=== PATIENT | male | born 1965 | race Caucasian/White ===

== ENCOUNTER 2019-03-15 12:57 | Observation (INO) ==
[2019-03-15] MEDS ORDERED: KETOROLAC TROMETHAMINE 15 MG/ML VIAL IV STA (14:31)
[2019-03-15] MEDS ORDERED: SODIUM CHLORIDE 0.9% 1000ML 1,000 ML IV ONE (14:31)
[2019-03-15 15:55] LABS: Basophils # (auto) 0.03 K/uL (0-0.2); Basophils % (auto) 0.2 %; Eosinophils # (auto) 0.02 K/uL (0-0.5); Eosinophils % (auto) 0.1 %; Hematocrit (blood only) 40.1 % (42-52); Hemoglobin 13.8 g/dL (14.0-18.0); Immature Granulocytes # (auto) 0.04 K/uL (0.00-0.02); Immature Granulocytes % (auto) 0.2 %; Lymphocytes # (auto) 1.53 K/uL (1.2-3.4); Lymphocytes % (auto) 8.9 %; Mean Corpuscular Hemoglobin 30.7 pg (25-34); Mean Corpuscular Hgb Conc 34.4 g/dL (32-36); Mean Corpuscular Volume 89.3 fL (80-100); Mean Platelet Volume 9.7 fL (7.4-10.4); Monocytes # (auto) 2.26 K/uL (0.11-0.59); Monocytes % (auto) 13.1 %; Neutrophils # (auto) 13.32 K/uL (1.4-6.5); Neutrophils % (auto) 77.5 %; Platelet Count 266 K/uL (130-400); RDW Coefficient of Variation 13.6 % (11.5-14.5); RDW Standard Deviation 44.4 fL (36.4-46.3); Red Blood Count 4.49 M/uL (4.7-6.1)
[2019-03-15 16:20] LABS: BUN Creatinine Ratio 12.8 (10-20); Blood Urea Nitrogen 15 mg/dl (7-18); Calcium 9.4 mg/dl (8.5-10.1); Carbon Dioxide 23 mmol/L (21-32); Chloride 105 mmol/L (98-107); Est GFR (African American) 80.9; Est GFR (Non-African American) 69.8; Glucose 89 mg/dl (70-99); Potassium 3.8 mmol/L (3.5-5.1); Sodium 135 mmol/L (136-145)
--- NOTE | 2019-03-15 16:55 | CT Scan Report ---
CT abd pelvis wo con CT DOSE: 987.51 mGy.cm HISTORY: Pain L inguinal pain TECHNIQUE: Multiaxial CT images of the abdomen and pelvis were performed without contrast. A dose lo wering technique was utilized adhering to the principles of ALARA. COMPARISON STUDY: None. FINDINGS: The lung bases are clear. Fatty replacement of the liver. The spleen and pancreas are unrem arkable. Kidneys negative for hydronephrosis. The bowel pattern is considered nonobstructive. No evidence for abscess collection or obstruction. Th e bladder is midline. Inguinal regions are unremarkable. IMPRESSION: No acute process in the abdomen or pelvis. ACT 112: Negative or not required by law. The above report was generated using voice recognition software. It may contain grammatical, syntax or spelling errors. Electronically signed by: Marin Aponte M.D. 03/15/2019 4:54 PM
--- NOTE | 2019-03-15 17:04 | Ultrasound Report ---
US scrotum/testicle HISTORY: Pain L testicular pain COMPARISON: None. FINDINGS: Right testis: Maximum dimension 4.0 cm. Normal vascular flow. Small epididymal cysts measuring 8 and 6 mm respectively. Left testis: Maximum dimension 3.3 cm. Normal vascular flow. Small epididymal cyst. IMPRESSION: 1. Normal testes bilaterally. 2. Normal vascular flow is confirmed to both testis. 3. Small bilateral epididymal cysts. ACT 112: Negative or not required by law. The above report was generated using voice recognition software. It may contain grammatical, syntax or spelling errors. Electronically signed by: Marin Aponte M.D. 03/15/2019 5:03 PM
[2019-03-15 17:49] LABS: Appearance Urine Clear (Clear); Bacteria Urine Automated Negative (Negative); Blood Urine Negative (Negative); Color Urine Dark Yellow; Epithelial Cell Urine Auto 20-30 /lpf (0-5); Glucose Urine UA Negative (Negative); Leukocyte Esterase Urine Negative (Negative); Nitrite Urine Negative (Negative); Protein Urine 1+ (Negative); Specific Gravity Urine 1.034 (1.000-1.030); Urobilinogen Urine Negative (Negative)
[2019-03-15 17:52] LABS: Ketones Urine 3+ (Negative)
[2019-03-15 17:58] LABS: Bilirubin Urine Negative (Negative); Ictotest Urine Negative (Negative)
[2019-03-15] MEDS ORDERED: cefTRIAXone SODIUM 1,000 MG/50 ML BAG IV STA (17:58)
[2019-03-15] MEDS ORDERED: ACETAMINOPHEN 325 MG TAB PO PRN (21:15)
--- NOTE | 2019-03-15 21:21 | History & Physical Report ---
Date of Service March 15, 2019 Assessment & Plan (1) Cellulitis of scrotum: -Admit to [facility] -Patient presenting from home with increasing scrotal erythema and edema -Seen by PCP on 03/11 and placed on ciprofloxacin for suspected epididymitis -In the ED today, WBC 17K, mild tachycardia; afebrile, BP stable, normal lactic acid -Scrotal ultrasound showing small bilateral epididymal cysts; no signs of epididymitis or fluid collection on ultrasound; CT ABD/pelvis does not show any evidence of Oneil's -UA does not suggest infection -S/p ceftriaxone in the ED, will continue with -Urology consult, input appreciated (2) Dyslipidemia: -Continue statin (3) DVT prophylaxis: -SCDs, ambulate History of Present Illness Chief Complaint: Scrotal Pain, Swelling, Redness Primary Care Provider: Иван Anaya MD 53 year old male who presents to the ED with scrotal pain, swelling, and redness. Patient reports symptoms of been going on for the past couple of weeks. He was seen in PCPs office on 03/11 and started on ciprofloxacin for suspected epididymitis. Outpatient scrotal ultrasound was obtained showing multiple right spermatocele and 9 mm left spermatocele versus epididymal cyst. Patient has had continued symptoms. He reports no relief since starting the ciprofloxacin. Pain is located at the base of his scrotum. Initially patient was only having pain with sitting however now pain occurs with any activity. Patient denies any urinary symptoms of hematuria or dysuria. No penile discharge. No open areas on the scrotum. Denies rectal pain with bowel movements. One night he woke up feeling hot and diaphoretic however did not jasmin e his temperature. Denies chills or rigors. No chest pain or shortness of breath. Denies lightheadedness, dizziness, diaphoresis, syncopal events. No abdominal pain, nausea, vomiting, diarrhea. In the ED, labs show WBC 17K. Scrotal ultrasound was obtained showing small bilateral epididymal cyst. CT ABD/pelvis negative for acute findings. Patient was given IV ceftriaxone, IV Toradol, IVF. Allergies Allergy/AdvReac Type Severity Reaction Status Date / Time Penicillins AdvReac Rash Unverified 03/15/19 14:19 Home Medications Home Medications Medication Instructions Recorded Confirmed Type atorvastatin 20 mg PO DAILY 03/15/19 03/15/19 History ciprofloxacin HCl [Cipro] 500 mg PO Q12H 03/15/19 03/15/19 History Past Med/Surg History Medical History (Updated 03/16/19 @ 08:15 by Hollis Ernst MD) Dyslipidemia Perineal abscess Undescended testicle s/p repair as a child Surgical History Status post scrotal varicocelectomy Family History Mother Dyslipidemia Father Prostate cancer Social History Preferred Language: Kazakh Communication Ability: Effective 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 Beliefs That Will Affect Care: None Current Living Situation: Spouse Other Information That Helps Us Care for You: No Feels Safe at Home: Yes Safety Concerns: Feels Safe At This Time Smoking Status: Former smoker Tobacco Type: cigarettes ; Do You Dip or Chew Tobacco: No ; Second Hand Exposure: No ; Tobacco Cessation Education Requested by Patient: No Hx Alcohol Use: Yes Alcohol type: wine Alcohol Intake Frequency Comment: Weekends Hx Substance Use: No Review of Systems Review of Systems: ROS per HPI, all other systems reviewed and negative Physical Exam Constitutional: WD/WN, vitals as above Eyes: PERRL, conjunctivae normal, anicteric sclerae ENMT: external ear and nose normal, oropharynx normal Respiratory: normal respiratory effort, lungs clear to auscultation Cardiovascular: Rate/Rhythm: regular rhythm and + tachycardic Vessels: normal peripheral pulses Extremities: no edema Gastrointestinal (Abdomen): normal bowel sounds, soft, nontender, no hepatosplenomegaly Musculoskeletal: no cyanosis or clubbing, extremities motor strength 5/5 Skin: no rashes, warm and dry Neurologic: PERRL, EOMI, accommodation nl, no face palsy, no dysarthria Psychiatric: A+Ox3, euthymic affect Genitourinary: + external tenderness (tenderness to base of scrotum), + edematous scrotum and + erythematous scrotum no penile drainage noted Results & Data Vital Signs (Past 12 Hours) Vital Signs Temp Pulse Pulse Resp BP BP Pulse Ox 03/15/19 20:00 107 H 14 141/83 H 97 03/15/19 19:30 93 H 18 128/90 98 03/15/19 19:00 100 H 19 150/91 H 97 03/15/19 18:30 96 H 11 L 122/80 96 03/15/19 18:00 97 H 15 132/86 96 03/15/19 17:58 100 H 12 125/89 96 03/15/19 17:30 95 H 13 125/89 97 03/15/19 17:14 98 H 17 133/87 98 03/15/19 16:00 96 H 14 127/89 96 03/15/19 15:51 99 H 20 147/94 H 98 03/15/19 15:50 93 H 15 147/94 H 99 03/15/19 15:00 91 H 12 120/79 99 03/15/19 14:30 95 H 15 134/92 97 03/15/19 13:06 37.2 C 114 H 18 155/107 H 99 Laboratory Results Short CBC 03/15/19 Range/Units 15:34 WBC 17.20 H (4.8-10.8) K/uL Hgb 13.8 L (14.0-18.0) g/dL Hct 40.1 L (42-52) % Plt Count 266 (130-400) K/uL BMP 03/15/19 15:34 Sodium 135 L Potassium 3.8 Chloride 105 Carbon Dioxide 23 BUN 15 Creatinine 1.19 Glucose 89 Calcium 9.4 Urine 03/15/19 Range/Units 17:27 Urine Color Dark Yellow Urine Appearance Clear (Clear) Urine pH 5.0 (4.5-7.5) Ur Specific [place] 1.034 H (1.000-1.030) Urine Protein 1+ H (Negative) Urine Glucose (UA) Negative (Negative) Diagnostic Findings SCROTAL ULTRASOUND IMPRESSION: 1. Normal testes bilaterally. 2. Normal vascular flow is confirmed to both testis. 3. Small bilateral epididymal cysts. CT ABD/PELVIS IMPRESSION: No acute process in the abdomen or pelvis. Code Status & VTE Plan VTE Prophylaxis Plan VTE Prophylaxis will be ordered: Yes Supervising Physician Co-Signing Physician Notes Pt was seen and examined. Agreed with Lauren CHADWICK exam, assessment and plan. 53 yo male with PMH of Dyslipidemia came to the ER for scrotal pain, erythema and swelling. Pt said that scrotal pain has been going on for the last few days. He said that pain worsening when sitting. He was starting on cipro by PCP. Scrotal u/s done in the ER showed Normal testes bilaterally and normal vascular flow is confirmed to both testis; and small bilateral epididymal cysts. CT abd/pelvis showed no acute process in the abdomen or pelvis. UA negative and WBC elevated. Will start on Ceftriaxone. Continue pain control. Will consult urology for eval. Continue monitor closely. MD Andrew
--- NOTE | 2019-03-15 21:44 | Emergency Department Note ---
Entered by Eunice Ordonez acting as a scribe for History of Present Illness General Chief complaint: Testicular Pain Stated complaint: TESTICAL PAIN AND INFLAMMATION Time Seen by Provider: 03/15/19 14:06 History of Present Illness Provider complaint: testicular pain Onset (ago): week(s) 1 Location: genitals (testicle) Pain Consistency: + other (worsening) Maximum Pain Intensity: 9 Relieved By: not by medication (Cipro) Associated symptoms: + denies other symptoms (dysuria, hematuria, bowel difficulty), + headaches (pulsating) and + other (base of scrotum feels inflamed, prostatitis, multiple spermatocele); no fever/chills Treatments prior to arrival: NSAID (3 Advil this morning without pain relief) The patient is a 53 year old male who presents to the ED with complaints of worsening testicular pain that started 1 week ago. The patient states that the pain is located at the base of his scrotum. The patient states that as time progressed, his pain worsened and it started to feel as if this area is becoming inflamed. The patient states that he saw a doctor at [facility] a few days ago and they diagnosed him with prostatitis. The patient states that he also had an ultrasound which showed multiple spermatocele. The patient states that he was discharged on Cipro. The patient notes that his pain has not gotten any better with the medication. The patient states that he has also had a pulsating headache, but denies fever, dysuria, hematuria, and difficulty moving his bowels. The patient notes that he took 3 Advil this morning but states that it does not help. The patient notes that he cannot see a urologist until mid- April so he decided to come to the ED today. Home Medications Home Medications Medication Instructions Recorded Confirmed Type atorvastatin 20 mg PO DAILY 03/15/19 03/15/19 History ciprofloxacin HCl [Cipro] 500 mg PO Q12H 03/15/19 03/15/19 History Allergies Allergy/AdvReac Type Severity Reaction Status Date / Time Penicillins AdvReac Rash Unverified 03/15/19 14:19 Past Med/Surg History Medical History Dyslipidemia Undescended testicle s/p repair as a child Surgical History Status post scrotal varicocelectomy Family History Mother Dyslipidemia Father Prostate cancer Social History Preferred Language: Cypriot Communication Ability: Effective [employer]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 and A total of 10 systems reviewed and were otherwise negative Physical Exam Vital Signs Vital Signs - 24 hr 03/15/19 13:06 03/15/19 14:30 03/15/19 15:00 Temperature 37.2 C Temperature Source Oral Pulse Rate 114 H 95 H 91 H Pulse Rate [Left] Pulse Rate from SpO2 Sensor 96 H 92 H Pulse Rhythm [Left] Respiratory Rate 18 15 12 Respiratory Effort / Characteristics Non-Labored Respiratory Depth Normal Respiratory Pattern Blood Pressure 155/107 H 134/92 120/79 Blood Pressure [Right Arm] Blood Pressure Mean 123 98 97 Blood Pressure Mean [Right Arm] Pulse Oximetry 99 97 99 Oxygen Delivery Method Room Air Sepsis Recent Fever Within 48 Hours No Sepsis New/Unexplained Change in Mental Status No Sepsis Action Taken by Nursing No Action Required 03/15/19 15:50 03/15/19 15:51 03/15/19 16:00 Temperature Temperature Source Pulse Rate 93 H 96 H Pulse Rate [Left] 99 H Pulse Rate from SpO2 Sensor 93 H 96 H Pulse Rhythm [Left] Regular Respiratory Rate 15 20 14 Respiratory Effort / Characteristics Non-Labored Respiratory Depth Normal Respiratory Pattern Regular Blood Pressure 147/94 H 127/89 Blood Pressure [Right Arm] 147/94 H Blood Pressure Mean 119 103 Blood Pressure Mean [Right Arm] 111 Pulse Oximetry 99 98 96 Oxygen Delivery Method Room Air Sepsis Recent Fever Within 48 Hours Sepsis New/Unexplained Change in Mental Status Sepsis Action Taken by Nursing 03/15/19 17:14 03/15/19 17:30 03/15/19 17:58 Temperature Temperature Source Pulse Rate 98 H 95 H 100 H Pulse Rate [Left] Pulse Rate from SpO2 Sensor 97 H 95 H 99 H Pulse Rhythm [Left] Respiratory Rate 17 13 12 Respiratory Effort / Characteristics Respiratory Depth Respiratory Pattern Blood Pressure 133/87 125/89 125/89 Blood Pressure [Right Arm] Blood Pressure Mean 95 95 95 Blood Pressure Mean [Right Arm] Pulse Oximetry 98 97 96 Oxygen Delivery Method Sepsis Recent Fever Within 48 Hours Sepsis New/Unexplained Change in Mental Status Sepsis Action Taken by Nursing 03/15/19 18:00 03/15/19 18:30 03/15/19 19:00 Temperature Temperature Source Pulse Rate 97 H 96 H 100 H Pulse Rate [Left] Pulse Rate from SpO2 Sensor 98 H 96 H 99 H Pulse Rhythm [Left] Respiratory Rate 15 11 L 19 Respiratory Effort / Characteristics Respiratory Depth Respiratory Pattern Blood Pressure 132/86 122/80 150/91 H Blood Pressure [Right Arm] Blood Pressure Mean 98 91 107 Blood Pressure Mean [Right Arm] Pulse Oximetry 96 96 97 Oxygen Delivery Method Sepsis Recent Fever Within 48 Hours Sepsis New/Unexplained Change in Mental Status Sepsis Action Taken by Nursing 03/15/19 19:30 03/15/19 20:00 Temperature Temperature Source Pulse Rate 93 H 107 H Pulse Rate [Left] Pulse Rate from SpO2 Sensor 95 H 108 H Pulse Rhythm [Left] Respiratory Rate 18 14 Respiratory Effort / Characteristics Respiratory Depth Respiratory Pattern Blood Pressure 128/90 141/83 H Blood Pressure [Right Arm] Blood Pressure Mean 97 93 Blood Pressure Mean [Right Arm] Pulse Oximetry 98 97 Oxygen Delivery Method Sepsis Recent Fever Within 48 Hours Sepsis New/Unexplained Change in Mental Status Sepsis Action Taken by Nursing GENERAL: He is oriented to person, place, and time. He appears well-developed and well-nourished. He does not appear distressed. HENT: Exam performed. - Head: Normocephalic and atraumatic. - Right Ear: External ear normal. No mastoid tenderness. - Left Ear: External ear normal. No mastoid tenderness. - Mouth/Throat: The oropharynx is clear and moist. No trismus in the jaw. No dental abscesses or uvula swelling. No oropharyngeal exudate or tonsillar abscesses. EYES: Conjunctivae and EOM are normal. Pupils are equal, round, and reactive to light. Right eye exhibits no discharge. Left eye exhibits no discharge. No scleral icterus. NECK: Normal range of motion. Neck supple. No JVD present. No spinous process tenderness present. No carotid bruit present. No rigidity. No tracheal deviation and normal range of motion present. No Brudzinski's sign and no Kernig's sign noted. CV: Normal rate, regular rhythm, normal heart sounds and intact distal pulses. There is no peripheral edema. Palpable radial pulses bue. PULM/CHEST: Effort normal and breath sounds normal. No respiratory distress. No stridor. He has no wheezes. He has no rales. - Chest Wall: He exhibits no tenderness. ABD: No CVA tenderness. The abdomen is soft. Bowel sounds are normal. He has no distension. No mass is present. There is no tenderness. There is no rebound, no guarding, no Barron's sign and no tenderness at McBurney's point. Rovsig negative. MUSC/SKEL: Normal range of motion. There is no peripheral edema, tenderness or deformity. : Pain to palpation of left testicle and left inguinal area. Uncircumcised, no urethral discharge or bleeding. Overlying erythema, warmth and swelling of scrotum. Pain to palpation of epididymis. LYMPH: No cervical adenopathy. NEURO: He is alert and oriented to person, place, and time. He has normal strength. No cranial nerve deficit or sensory deficit. Coordination and gait normal. GCS eye subscore is 4. GCS verbal subscore is 5. GCS motor subscore is 6. Cerebellar tests wnl. SKIN: Skin is warm and dry. He is not diaphoretic. PSYCH: He has a normal mood and affect. Behavior is normal. Judgment and thought content normal. Course Course 1422: Past medical records reviewed. The patient was evaluated in room C09. A complete history and physical exam was performed. 1427: occupational therapist rehab manager received outpatient records. Ultrasound showed normal testes and no evidence of intratesticular mass or torsion. There are multiple right s ided spermatocele and a 9 mm left spermatocele versus epididymal cyst. There is a region superior to the right and left testes representing postsurgical change related to previous right inguinal surgery with hernia not excluded. 1723: Labs show leukocytosis of 17.2. Ultrasound shows bilateral epididymal cysts, good blood flow. CT of the abdomen pelvis negative. It is thought that the patient's leukocytosis, tachycardia, are due to overlying cellulitis over the patient scrotum. There is no evidence of Oneil's gangrene. I discussed the patient's case with Dr. Carmona Urologmargo. He states that the patient's prostatitis may take some time to improve but if the patient is admitted to the hospital, he is in agreement to be on consult. 1912: I discussed the patient's case with Dr. [facility]. He will evaluate the patient for further management. Consultations Consultation #1: I discussed the patient's case with Dr. Carmona Urologmargo. He states that the patient's prostatitis may take some time to improve but if the patient is admitted to the hospital, he is in agreeament to be on consult. Time: 17:23 Consultation #2: I discussed the patient's case with Dr. Paige Conway. He will evaluate the patient for further management. Time: 19:12 Administered Medications Discontinued Medications Sodium Chloride (Nss 1000ml) 1,000 mls @ 999 mls/hr IV .Q1H1M ONE Stop: 03/15/19 15:31 Last Infusion: 03/15/19 16:45 Dose: 0 mls/hr Documented by: [id number] Admin: 03/15/19 15:47 Dose: 999 mls/hr Documented by: [id number] Ceftriaxone Sodium (Rocephin) 1,000 mg in 50 mls @ 100 mls/hr IV NOW STA Stop: 03/15/19 18:27 Last Infusion: 03/15/19 18:58 Dose: 0 mls/hr Documented by: [id number] Admin: 03/15/19 18:19 Dose: 100 mls/hr Documented by: [id number] Ketorolac Tromethamine (Toradol) 15 mg IV NOW STA Stop: 03/15/19 14:32 Last Admin: 03/15/19 15:47 Dose: 15 mg Documented by: [id number] Medical Decision Making Medical Records Attestation: I reviewed the patient's medical records. Home Medications Current Medication List: was personally reviewed by me Laboratory Data Attestation: I reviewed the patient's lab results. Result diagrams: 03/15/19 15:34 03/15/19 15:34 Lab Results 03/15/19 03/15/19 03/15/19 Range/Units 15:34 15:34 17:25 WBC 17.20 H (4.8-10.8) K/uL RBC 4.49 L (4.7-6.1) M/uL Hgb 13.8 L (14.0-18.0) g/dL Hct 40.1 L (42-52) % MCV 89.3 (80-100) fL MCH 30.7 (25-34) pg MCHC 34.4 (32-36) g/dL RDW Std Deviation 44.4 (36.4-46.3) fL RDW Coeff of Everardo 13.6 (11.5-14.5) % Plt Count 266 (130-400) K/uL MPV 9.7 (7.4-10.4) fL Immature Gran % (Auto) 0.2 % Neut % (Auto) 77.5 % Lymph % (Auto) 8.9 % [place] % (Auto) 13.1 % Eos % (Auto) 0.1 % Baso % (Auto) 0.2 % Immature Gran # (Auto) 0.04 H (0.00-0.02) K/uL Neut # (Auto) 13.32 H (1.4-6.5) K/uL Lymph # (Auto) 1.53 (1.2-3.4) K/uL [place] # (Auto) 2.26 H (0.11-0.59) K/uL Eos # (Auto) 0.02 (0-0.5) K/uL Baso # (Auto) 0.03 (0-0.2) K/uL Sodium 135 L (136-145) mmol/L Potassium 3.8 (3.5-5.1) mmol/L Chloride 105 (98-107) mmol/L Carbon Dioxide 23 (21-32) mmol/L Anion Gap 7.0 (3-11) BUN 15 (7-18) mg/dl Creatinine 1.19 (0.6-1.4) mg/dl Est Cr Clr Drug Dosing Not Reportable Est GFR ( Amer) 80.9 Est GFR (Non-Af Amer) 69.8 BUN/Creatinine Ratio 12.8 (10-20) Glucose 89 (70-99) mg/dl POC Lactic Acid Daniele (0.90-1.70) mmol/L Lactate 1.8 (0.4-2.0) mmol/L Calcium 9.4 (8.5-10.1) mg/dl Urine Color Urine Appearance (Clear) Urine pH (4.5-7.5) Ur Specific Leon (1.000-1.030) Urine Protein (Negative) Urine Glucose (UA) (Negative) Urine Ketones (Negative) Urine Blood (Negative) Urine Nitrite (Negative) Urine Bilirubin (Negative) Urine Urobilinogen (Negative) Ur Leukocyte Esterase (Negative) Urine WBC (Auto) (0-5) /hpf Urine RBC (Auto) (0-4) /hpf U Hyaline Cast (Auto) (0-5) /lpf U Epithel Cells (Auto) (0-5) /lpf Urine Bacteria (Auto) (Negative) 03/15/19 03/15/19 Range/Units 17:27 17:32 WBC (4.8-10.8) K/uL RBC (4.7-6.1) M/uL Hgb (14.0-18.0) g/dL Hct (42-52) % MCV (80-100) fL MCH (25-34) pg MCHC (32-36) g/dL RDW Std Deviation (36.4-46.3) fL RDW Coeff of Everardo (11.5-14.5) % Plt Count (130-400) K/uL MPV (7.4-10.4) fL Immature Gran % (Auto) % Neut % (Auto) % Lymph % (Auto) % [place] % (Auto) % Eos % (Auto) % Baso % (Auto) % Immature Gran # (Auto) (0.00-0.02) K/uL Neut # (Auto) (1.4-6.5) K/uL Lymph # (Auto) (1.2-3.4) K/uL [place] # (Auto) (0.11-0.59) K/uL Eos # (Auto) (0-0.5) K/uL Baso # (Auto) (0-0.2) K/uL Sodium (136-145) mmol/L Potassium (3.5-5.1) mmol/L Chloride (98-107) mmol/L Carbon Dioxide (21-32) mmol/L Anion Gap (3-11) BUN (7-18) mg/dl Creatinine (0.6-1.4) mg/dl Est Cr Clr Drug Dosing Est GFR ( Amer) Est GFR (Non-Af Amer) BUN/Creatinine Ratio (10-20) Glucose (70-99) mg/dl POC Lactic Acid Daniele 1.83 H (0.90-1.70) mmol/L Lactate (0.4-2.0) mmol/L Calcium (8.5-10.1) mg/dl Urine Color Dark Yellow Urine Appearance Clear (Clear) Urine pH 5.0 (4.5-7.5) Ur Specific Leon 1.034 H (1.000-1.030) Urine Protein 1+ H (Negative) Urine Glucose (UA) Negative (Negative) Urine Ketones 3+ H (Negative) Urine Blood Negative (Negative) Urine Nitrite Negative (Negative) Urine Bilirubin Negative (Negative) Urine Urobilinogen Negative (Negative) Ur Leukocyte Esterase Negative (Negative) Urine WBC (Auto) 1-5 (0-5) /hpf Urine RBC (Auto) 5-10 H (0-4) /hpf U Hyaline Cast (Auto) 5-10 H (0-5) /lpf U Epithel Cells (Auto) 20-30 H (0-5) /lpf Urine Bacteria (Auto) Negative (Negative) Imaging Data Radiologist's Impression: Radiology results as stated below per my review and the radiologist's interpretation: CT abd pelvis wo con CT DOSE: 987.51 mGy.cm HISTORY: Pain L inguinal pain TECHNIQUE: Multiaxial CT images of the abdomen and pelvis were performed without contrast. A dose lowering technique was utilized adhering to the principles of ALARA. COMPARISON STUDY: None. FINDINGS: The lung bases are clear. Fatty replacement of the liver. The spleen and pancreas are unremarkable. Kidneys negative for hydronephrosis. The bowel pattern is considered nonobstructive. No evidence for abscess collection or obstruction. The bladder is midline. Inguinal regions are unremarkable. IMPRESSION: No acute process in the abdomen or pelvis. ACT 112: Negative or not required by law. The above report was generated using voice recognition software. It may contain grammatical, syntax or spelling errors. Electronically signed by: Marin Aponte M.D. 03/15/2019 4:54 PM US scrotum/testicle HISTORY: Pain L testicular pain COMPARISON: None. FINDINGS: Right testis: Maximum dimension 4.0 cm. Normal vascular flow. Small epididymal cysts measuring 8 and 6 mm respectively. Left testis: Maximum dimension 3.3 cm. Normal vascular flow. Small epididymal cyst. IMPRESSION: 1. Normal testes bilaterally. 2. Normal vascular flow is confirmed to both testis. 3. Small bilateral epididymal cysts. ACT 112: Negative or not required by law. The above report was generated using voice recognition software. It may contain grammatical, syntax or spelling errors. Electronically signed by: Marin Aponte M.D. 03/15/2019 5:03 PM Blood Pressure Blood Pressure Findings: Elevated blood pressure Blood Pressure Disposition: further management by hospitalist [facility] Narrative 1422: Past medical records reviewed. The patient was evaluated in room C09. A complete history and physical exam was performed. 1427: occupational therapist rehab manager received outpatient records. Ultrasound showed normal testes and no evidence of intratesticular mass or torsion. There are multiple right sided spermatocele and a 9 mm left spermatocele versus epididymal cyst. There is a region superior to the right and left testes representing postsurgical change related to previous right inguinal surgery with hernia not excluded. 1723: Labs show leukocytosis of 17.2. Ultrasound shows bilateral epididymal cysts, good blood flow. CT of the abdomen pelvis negative. It is thought that the patient's leukocytosis, tachycardia, are due to overlying cellulitis over the patient scrotum. There is no evidence of Oneil's gangrene. I discussed the patient's case with Dr. Ernst- Urology. He states that the patient's pr ostatitis may take some time to improve but if the patient is admitted to the hospital, he is in agreement to be on consult. 1912: I discussed the patient's case with Dr. Paige Chaney Hospitalist. He will evaluate the patient for further management. Impression & Plan Cellulitis of scrotum Discharge Plan Visit Data *Final* Discharge Date/Time: 03/15/19 21:05 Chief Complaint: Testicular Pain Stated Complaint: TESTICAL PAIN AND INFLAMMATION ED Provider: Jamar Lima Discharge Problem: Cellulitis of scrotum Patient Disposition: Admitted As Inpatient Discharge Instructions Interventions: ED Discharge Assessment Last Done: 03/15/19 21:05 The scribe's documentation has been prepared under my direction and personally reviewed by me in its entirety. I confirm that the note above accurately r eflects all work, treatment, procedures, and medical decision making performed by me.
[2019-03-15] MEDS: SODIUM CHLORIDE 0.9% 1000ML 1,000 ML IV SCH (21:57)
[2019-03-15] MEDS: KETOROLAC TROMETHAMINE 15 MG/ML VIAL IV PRN (21:58)
[2019-03-16 05:49] LABS: Hematocrit (blood only) 37.8 % (42-52); Hemoglobin 12.7 g/dL (14.0-18.0); Mean Corpuscular Hgb Conc 33.6 g/dL (32-36); Mean Corpuscular Volume 89.2 fL (80-100); Mean Platelet Volume 9.4 fL (7.4-10.4); Platelet Count 270 K/uL (130-400); RDW Coefficient of Variation 13.6 % (11.5-14.5); RDW Standard Deviation 44.6 fL (36.4-46.3); Red Blood Count 4.24 M/uL (4.7-6.1); White Blood Count 13.77 K/uL (4.8-10.8)
[2019-03-16 06:12] LABS: BUN Creatinine Ratio 14.8 (10-20); Calcium 8.6 mg/dl (8.5-10.1); Creatinine Clr Calc Pharmacy 97.3 ml/min; Est GFR (African American) 87.1; Est GFR (Non-African American) 75.1; Potassium 3.4 mmol/L (3.5-5.1)
[2019-03-16] MEDS ORDERED: LIDOCAINE HCL 1% 20 ML VIAL ONE (08:00)
[2019-03-16] MEDS ORDERED: LIDOCAINE HCL 1% 20 ML VIAL INJ ONE (08:06)
--- NOTE | 2019-03-16 08:20 | Urology Consultation ---
Date of Consultation March 16, 2019 Assessment & Plan (1) Perineal abscess: A/P 53 yo male with perineal abscess. Findings reviewed with patient, offered bedside I&D. Accepts, consent obtained. See above, wound packed. Local wound care reviewed, consider observation until tomorrow, packing change tonight by nursing, I will perform packing change in AM. Will arrange for OP f/u in 1-2 weeks to check on healing, worrisome signs and symptoms reviewed. Thank you for allowing us to participate in this patient's acute care. Please contact our service with any questions or concerns. History of Present Illness Reason for Consultation: Perineal abscess Attending Physician: Sandi Marcus, History of Present Illness 53 yo male admitted due to worsening perineal pain and swelling after being started on antibiotics for question of "prostatitis" by his PMD. He reports he is unimproved since, denies fevers. He notes worsening swelling in the perineal area. Scrotal US was done and was unremarkable with normal testes, apparently perineum not imaged. ER and hospitalist notes reviewed. Patient notes his pain is unimproved. He notes distant evaluation in the context of a L varicocoelectomy in [facility] and childhood R orchidopexy. He notes mild baseline LUTS with nocturia x 0-2, mild postvoid dribbling, no retention, hesitancy or intermittency, adequate stream and no bother. He denies prior UTI, DM or stricture disease. consultation is sought to assist with his care. He reports a normal PSA at the age of ~ 51. Allergies Allergy/AdvReac Type Severity Reaction Status Date / Time Penicillins AdvReac Rash Unverified 03/15/19 14:19 Home Medications Home Medications Medication Instructions Recorded Confirmed Type atorvastatin 20 mg PO DAILY 03/15/19 03/15/19 History ciprofloxacin HCl [Cipro] 500 mg PO Q12H 03/15/19 03/15/19 History Patient History Medical History (Updated 03/16/19 @ 08:15 by Hollis Ernst MD) Dyslipidemia Perineal abscess Undescended testicle s/p repair as a child Surgical History Status post scrotal varicocelectomy Family History Mother Dyslipidemia Father Prostate cancer Social History Preferred Language: Libyan Communication Ability: Effective Soil Sampler Required: No Beliefs That Will Affect Care: None Current Living Situation: Spouse Other Information That Helps Us Care for You: No Feels Safe at Home: Yes Safety Concerns: Feels Safe At This Time Smoking Status: Former smoker Tobacco Type: cigarettes ; Do You Dip or Chew Tobacco: No ; Second Hand Exposure: No ; Tobacco Cessation Education Requested by Patient: No Hx Alcohol Use: Yes Alcohol type: wine Alcohol Intake Frequency Comment: Weekends Hx Substance Use: No Review of Systems Constitutional: no fever and no chills Eyes: no diplopia Ear, Nose, Mouth, Throat: no ear trauma Respiratory: no hemoptysis Cardiovascular: no chest pain Gastrointestinal: no abdominal pain, no nausea and no vomiting Genitourinary: + nocturia and + genital pain; no dysuria Musculoskeletal: no back pain Integumentary: no acne and no boil Neurologic: no paralysis Psychiatric: no hopelessness Hematologic / Lymphatic: no easy bleeding and no lymphadenopathy Allergy / Immunological: no tongue swelling Physical Exam Constitutional: well developed and well nourished; no acute distress Eyes: eyes not dysmorphic ENMT: Ears: no external ear abnormality Neck: trachea midline; no anterior neck swelling Respiratory: no respiratory distress and does not use accessory muscles Cardiovascular: Vessels: radial pulses present Gastrointestinal (Abdomen): Inspection/Auscultation: abdomen not distended Percussion/Palpation: abdomen soft; abdomen nontender Musculoskeletal: Head/Neck/Chest: normocephalic and neck supple Skin: normal turgor Neurologic: awake; not obtunded Psychiatric: Orientation: oriented x 3 Genitourinary: Uncirc phallus, normal meatus, scrotum wnl, testes desc bilaterally, no masses or inflammation, large loculated perineal inflammation with 2 apparent areas of connection in midline and fluctuance. Lymphatic: no lymphadenopathy Results & Data Vital Signs (Past 12 Hours) Vital Signs Temp Pulse Pulse Resp BP BP Pulse Ox 03/16/19 07:43 36.6 C 110 H 16 124/78 93 03/15/19 22:46 37.5 C 98 H 16 123/80 95 03/15/19 21:13 37.5 C 105 H 20 157/93 H 96 03/15/19 21:00 103 H 14 129/81 97 03/15/19 20:30 108 H 12 142/88 H 96 Laboratory Results Laboratory Results - last 48 hr 03/15/19 03/15/19 03/15/19 15:34 15:34 17:25 WBC 17.20 H RBC 4.49 L Hgb 13.8 L Hct 40.1 L MCV 89.3 MCH 30.7 MCHC 34.4 RDW Std Deviation 44.4 RDW Coeff of [place] 13.6 Plt Count 266 MPV 9.7 Immature Gran % (Auto) 0.2 Neut % (Auto) 77.5 Lymph % (Auto) 8.9 [place] % (Auto) 13.1 Eos % (Auto) 0.1 Baso % (Auto) 0.2 Immature Gran # (Auto) 0.04 H Neut # (Auto) 13.32 H Lymph # (Auto) 1.53 [place] # (Auto) 2.26 H Eos # (Auto) 0.02 Baso # (Auto) 0.03 Sodium 135 L Potassium 3.8 Chloride 105 Carbon Dioxide 23 Anion Gap 7.0 BUN 15 Creatinine 1.19 Est Cr Clr Drug Dosing Not Reportable Est GFR ( Amer) 80.9 Est GFR (Non-Af Amer) 69.8 BUN/Creatinine Ratio 12.8 Glucose 89 POC Lactic Acid Daniele Lactate 1.8 Calcium 9.4 Urine Color Urine Appearance Urine pH Ur Specific [place] Urine Protein Urine Glucose (UA) Urine Ketones Urine Blood Urine Nitrite Urine Bilirubin Urine Urobilinogen Ur Leukocyte Esterase Urine WBC (Auto) Urine RBC (Auto) U Hyaline Cast (Auto) U Epithel Cells (Auto) Urine Bacteria (Auto) 03/15/19 03/15/19 03/16/19 17:27 17:32 05:34 WBC 13.77 H RBC 4.24 L Hgb 12.7 L Hct 37.8 L MCV 89.2 MCH 30.0 MCHC 33.6 RDW Std Deviation 44.6 RDW Coeff of [place] 13.6 Plt Count 270 MPV 9.4 Immature Gran % (Auto) Neut % (Auto) Lymph % (Auto) [place] % (Auto) Eos % (Auto) Baso % (Auto) Immature Gran # (Auto) Neut # (Auto) Lymph # (Auto) [place] # (Auto) Eos # (Auto) Baso # (Auto) Sodium Potassium Chloride Carbon Dioxide Anion Gap BUN Creatinine Est Cr Clr Drug Dosing Est GFR ( Amer) Est GFR (Non-Af Amer) BUN/Creatinine Ratio Glucose POC Lactic Acid Daniele 1.83 H Lactate Calcium Urine Color Dark Yellow Urine Appearance Clear Urine pH 5.0 Ur Specific [place] 1.034 H Urine Protein 1+ H Urine Glucose (UA) Negative Urine Ketones 3+ H Urine Blood Negative Urine Nitrite Negative Urine Bilirubin Negative Urine Urobilinogen Negative Ur Leukocyte Esterase Negative Urine WBC (Auto) 1-5 Urine RBC (Auto) 5-10 H U Hyaline Cast (Auto) 5-10 H U Epithel Cells (Auto) 20-30 H Urine Bacteria (Auto) Negative 03/16/19 05:34 WBC RBC Hgb Hct MCV MCH MCHC RDW Std Deviation RDW Coeff of Everardo Plt Count MPV Immature Gran % (Auto) Neut % (Auto) Lymph % (Auto) [place] % (Auto) Eos % (Auto) Baso % (Auto) Immature Gran # (Auto) Neut # (Auto) Lymph # (Auto) [place] # (Auto) Eos # (Auto) Baso # (Auto) Sodium 137 Potassium 3.4 L Chloride 108 H Carbon Dioxide 23 Anion Gap 6.0 BUN 17 Creatinine 1.12 Est Cr Clr Drug Dosing 97.3 Est GFR ( Amer) 87.1 Est GFR (Non-Af Amer) 75.1 BUN/Creatinine Ratio 14.8 Glucose 117 H POC Lactic Acid Daniele Lactate Calcium 8.6 Urine Color Urine Appearance Urine pH Ur Specific [place] Urine Protein Urine Glucose (UA) Urine Ketones Urine Blood Urine Nitrite Urine Bilirubin Urine Urobilinogen Ur Leukocyte Esterase Urine WBC (Auto) Urine RBC (Auto) U Hyaline Cast (Auto) U Epithel Cells (Auto) Urine Bacteria (Auto) PG Care Time/CCT Total # of Minutes Spent Total Time Spent with Patient: Total time spent is greater than 50% in coordination of care (as documented) at patient's floor/unit and/or counseling patient: Procedure: Patient prepped with betadine after identification of appropriate consent in the chart. Field block performed with Lidocaine 1% and vertical midline incision made. Two deep collections, ~ 2-3 cm in size with scant purulent fluid noted. These are probed with minimal loculations. Incision made to connect both. 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 Cavity packed with 1/4 inch gauze then covered. Procedure tolerated well.
[2019-03-16] MEDS ORDERED: OXYCODONE/ACETAMINOPHEN 5mg/325mg TAB PO PRN (08:50)
[2019-03-16] MEDS ORDERED: ATORVASTATIN 20 MG TAB PO SCH (09:00)
[2019-03-16] MEDS: SODIUM CHLORIDE 0.9% 1000ML 1,000 ML IV SCH (10:25)
[2019-03-16] MEDS: OXYCODONE/ACETAMINOPHEN 5mg/325mg TAB PO PRN ×2 (15:10→19:37)
--- NOTE | 2019-03-16 17:03 | Hospitalist Progress Note ---
Date of Service March 16, 2019 Assessment & Plan (1) Perineal abscess: Bedside I&D performed by Dr. Ernst. Cont ceftriaxone. Afebrile and continue with pain control efforts. (2) Cellulitis of scrotum: cont ceftriaxone. (3) Dyslipidemia: declines home statin that had been restarted on admission. (4) DVT prophylaxis: -SCDs, ambulate Full Code Dispo-to home when wound improved and medically stable. Sandi Marcus DO [facility] Hospitalist Physical Exam Physical Exam: CONSTITUTIONAL: WNWD, vitals as above, generally well- appearing EYES: normal conjunctivae, no scleral icterus ENT: MMM RESPIRATORY: clear to auscultation bilaterally, no crackles, rales or wheezes, normal respiratory effort CARDIOVASCULAR: regular rate and rhythm, S1 and 2 heard without murmurs, gallops or rubs, no JVD, no peripheral edema GASTROINTESTINAL: soft, nontender, nondistended : perineal wound with expected scrotal erythema, and resolution of previous erythema. Wound was packed and covered with gauze. Min drainage present. Limited perineal view but erythema of scrotum and perineum is present around the wound. Testes enlarged and symmetric, normal phallus. MUSCULOSKELETAL: strength 5/5 throughout, head is normocephalic and atraumatic SKIN: warm and dry, wound as above. NEUROLOGIC: CN 2-12 grossly intact, no sensory deficit, normal cognition, normal speech, no tremor, no gross focal deficits. PSYCHIATRIC: alert cooperative and oriented to person, place and time. Results & Data Vital Signs (Past 12 Hours) Vital Signs Temp Pulse Resp BP Pulse Ox 03/16/19 15:05 37.3 C 96 H 18 136/82 96 03/16/19 11:31 37.6 C H 89 16 131/88 91 03/16/19 07:43 36.6 C 110 H 16 124/78 93 Laboratory Results Short CBC 03/16/19 Range/Units 05:34 WBC 13.77 H (4.8-10.8) K/uL Hgb 12.7 L (14.0-18.0) g/dL Hct 37.8 L (42-52) % Plt Count 270 (130-400) K/uL BMP 03/16/19 05:34 Sodium 137 Potassium 3.4 L Chloride 108 H Carbon Dioxide 23 BUN 17 Creatinine 1.12 Glucose 117 H Calcium 8.6 Urine 03/15/19 Range/Units 17:27 Urine Color Dark Yellow Urine Appearance Clear (Clear) Urine pH 5.0 (4.5-7.5) Ur Specific [place] 1.034 H (1.000-1.030) Urine Protein 1+ H (Negative) Urine Glucose (UA) Negative (Negative) Medications Administered Current Inpatient Medications Acetaminophen (Tylenol) 650 mg PO Q4H PRN PRN Reason: pain/fever Stop: 04/14/19 21:14 Ceftriaxone Sodium 1,000 mg/ (Dextrose) 50 mls @ 100 mls/hr IV Q24H CINDY; Protocol Stop: 03/26/19 17:59 Ketorolac Tromethamine (Toradol) 15 mg IV Q6H PRN PRN Reason: Pain Stop: 03/20/19 21:14 Last Admin: 03/15/19 21:58 Dose: 15 mg Documented by: Oxycodone/Acetaminophen (Percocet 5mg/325mg) 1 tab PO Q4H PRN PRN Reason: Pain Stop: 03/30/19 08:49 Last Admin: 03/16/19 10:00 Dose: 1 tab Documented by: Oxycodone/Acetaminophen (Percocet 5mg/325mg) 2 tab PO Q4H PRN PRN Reason: Moderate Pain Stop: 03/30/19 08:49 Last Admin: 03/16/19 15:10 Dose: 2 tab Documented by:
[2019-03-16] MEDS ORDERED: cefTRIAXone SODIUM 1,000 MG in DEXTROSE 5% 50 ML IV SCH (18:00)
[2019-03-17] MEDS: KETOROLAC TROMETHAMINE 15 MG/ML VIAL IV PRN (06:00)
[2019-03-17 06:14] LABS: Hematocrit (blood only) 35.6 % (42-52); Mean Corpuscular Hemoglobin 29.9 pg (25-34); Mean Corpuscular Hgb Conc 33.7 g/dL (32-36); Mean Corpuscular Volume 88.6 fL (80-100); Mean Platelet Volume 9.2 fL (7.4-10.4); Platelet Count 278 K/uL (130-400); RDW Coefficient of Variation 13.3 % (11.5-14.5); RDW Standard Deviation 43.8 fL (36.4-46.3); Red Blood Count 4.02 M/uL (4.7-6.1); White Blood Count 16.85 K/uL (4.8-10.8)
[2019-03-17 06:47] LABS: BUN Creatinine Ratio 10.9 (10-20); Calcium 8.6 mg/dl (8.5-10.1); Creatinine Clr Calc Pharmacy 105.8 ml/min; Est GFR (African American) 96.3; Est GFR (Non-African American) 83.1; Potassium 3.7 mmol/L (3.5-5.1)
[2019-03-17] MEDS ORDERED: SULFAMETHOXAZOLE/TRIMETHOPRIM DS 800/160MG TAB PO SCH (09:00)
--- NOTE | 2019-03-17 10:40 | Urology Progress Note ---
Date of Service March 17, 2019 Assessment & Plan (1) Perineal abscess: A/P 53-year-old male status post I&D of perineal abscess, postoperative day #1. Packing exchanged today as noted and technique demonstrated to . She reports feeling more comfortable with wound care at home. Wound care instructions and worrisome signs and symptoms reviewed. Patient should be stable for discharge home today on a course of oral Bactrim x1 to 2 weeks. Will arrange for outpatient wound check in the next week or 2. Outpatient contact information is provided. Patient instructed to contact our service with any questions or concerns as an outpatient. Thank you for allowing us to participate in this patient's acute care. Please recall our service as needed for any questions or concerns. Subjective 53-year-old male with a perineal abscess, postoperative day #1 status post I&D at bedside. He reports that he is feeling much improved and is ambulatory after his procedure yesterday. Care discussed with nursing who report that packing exchange went well yesterday p.m. is present in the room today as well for interview. Patient reports that he is feeling much improved and is pleased with his results. He denies new voiding issues or febrile episodes since yesterday although his low-grade temp overnight is noted. His cultures demonstrating scant skin organisms with no sensitivity planned are noted. Review of Systems Constitutional: no fever and no chills Eyes: no diplopia Ear, Nose, Mouth, Throat: no ear trauma Respiratory: no hemoptysis Cardiovascular: no chest pain Gastrointestinal: no abdominal pain, no nausea and no vomiting Genitourinary: + as per Subjective / HPI Integumentary: no acne and no boil Neurologic: no paralysis Psychiatric: no hopelessness Allergy / Immunological: no tongue swelling Physical Exam Constitutional: well developed and well nourished; no acute distress Eyes: eyes not dysmorphic ENMT: Ears: no external ear abnormality Neck: trachea midline; no anterior neck swelling Respiratory: no respiratory distress and does not use accessory muscles Cardiovascular: Vessels: radial pulses present Gastrointestinal (Abdomen): Inspection/Auscultation: abdomen not distended Percussion/Palpation: abdomen soft; abdomen nontender Musculoskeletal: Head/Neck/Chest: normocephalic and neck supple Skin: normal turgor Neurologic: awake; not obtunded Psychiatric: Orientation: oriented x 3 Genitourinary: Improved perineal edema. Wound open with early granulation tissue being present on the umaña. Packing exchanged with a deep aspects of the wounds remaining open. A questionable collection is noted at the 1 o'clock position, not completely drained. Nontender and improved aspect overall. Lymphatic: no lymphadenopathy Results & Data Vital Signs (Past 12 Hours) Vital Signs Temp Pulse Resp BP Pulse Ox 03/17/19 07:07 37.4 C 92 H 16 128/77 91 03/16/19 22:54 37.6 C H 93 H 16 129/81 93 Laboratory Results Laboratory Results - last 48 hr 03/15/19 03/15/19 03/15/19 15:34 15:34 17:25 WBC 17.20 H RBC 4.49 L Hgb 13.8 L Hct 40.1 L MCV 89.3 MCH 30.7 MCHC 34.4 RDW Std Deviation 44.4 RDW Coeff of Everardo 13.6 Plt Count 266 MPV 9.7 Immature Gran % (Auto) 0.2 Neut % (Auto) 77.5 Lymph % (Auto) 8.9 [place] % (Auto) 13.1 Eos % (Auto) 0.1 Baso % (Auto) 0.2 Immature Gran # (Auto) 0.04 H Neut # (Auto) 13.32 H Lymph # (Auto) 1.53 [place] # (Auto) 2.26 H Eos # (Auto) 0.02 Baso # (Auto) 0.03 Sodium 135 L Potassium 3.8 Chloride 105 Carbon Dioxide 23 Anion Gap 7.0 BUN 15 Creatinine 1.19 Est Cr Clr Drug Dosing Not Reportable Est GFR ( Amer) 80.9 Est GFR (Non-Af Amer) 69.8 BUN/Creatinine Ratio 12.8 Glucose 89 POC Lactic Acid Daniele Lactate 1.8 Calcium 9.4 Urine Color Urine Appearance Urine pH Ur Specific [place] Urine Protein Urine Glucose (UA) Urine Ketones Urine Blood Urine Nitrite Urine Bilirubin Urine Urobilinogen Ur Leukocyte Esterase Urine WBC (Auto) Urine RBC (Auto) U Hyaline Cast (Auto) U Epithel Cells (Auto) Urine Bacteria (Auto) 03/15/19 03/15/19 03/16/19 17:27 17:32 05:34 WBC 13.77 H RBC 4.24 L Hgb 12.7 L Hct 37.8 L MCV 89.2 MCH 30.0 MCHC 33.6 RDW Std Deviation 44.6 RDW Coeff of Everardo 13.6 Plt Count 270 MPV 9.4 Immature Gran % (Auto) Neut % (Auto) Lymph % (Auto) [place] % (Auto) Eos % (Auto) Baso % (Auto) Immature Gran # (Auto) Neut # (Auto) Lymph # (Auto) [place] # (Auto) Eos # (Auto) Baso # (Auto) Sodium Potassium Chloride Carbon Dioxide Anion Gap BUN Creatinine Est Cr Clr Drug Dosing Est GFR ( Amer) Est GFR (Non-Af Amer) BUN/Creatinine Ratio Glucose POC Lactic Acid Daniele 1.83 H Lactate Calcium Urine Color Dark Yellow Urine Appearance Clear Urine pH 5.0 Ur Specific [place] 1.034 H Urine Protein 1+ H Urine Glucose (UA) Negative Urine Ketones 3+ H Urine Blood Negative Urine Nitrite Negative Urine Bilirubin Negative Urine Urobilinogen Negative Ur Leukocyte Esterase Negative Urine WBC (Auto) 1-5 Urine RBC (Auto) 5-10 H U Hyaline Cast (Auto) 5-10 H U Epithel Cells (Auto) 20-30 H Urine Bacteria (Auto) Negative 03/16/19 03/17/19 03/17/19 05:34 05:38 05:38 WBC 16.85 H RBC 4.02 L Hgb 12.0 L Hct 35.6 L MCV 88.6 MCH 29.9 MCHC 33.7 RDW Std Deviation 43.8 RDW Coeff of Everardo 13.3 Plt Count 278 MPV 9.2 Immature Gran % (Auto) Neut % (Auto) Lymph % (Auto) [place] % (Auto) Eos % (Auto) Baso % (Auto) Immature Gran # (Auto) Neut # (Auto) Lymph # (Auto) [place] # (Auto) Eos # (Auto) Baso # (Auto) Sodium 137 136 Potassium 3.4 L 3.7 Chloride 108 H 106 Carbon Dioxide 23 22 Anion Gap 6.0 8.0 BUN 17 11 Creatinine 1.12 1.03 Est Cr Clr Drug Dosing 97.3 105.8 Est GFR ( Amer) 87.1 96.3 Est GFR (Non-Af Amer) 75.1 83.1 BUN/Creatinine Ratio 14.8 10.9 Glucose 117 H 91 POC Lactic Acid Daniele Lactate Calcium 8.6 8.6 Urine Color Urine Appearance Urine pH Ur Specific [place] Urine Protein Urine Glucose (UA) Urine Ketones Urine Blood Urine Nitrite Urine Bilirubin Urine Urobilinogen Ur Leukocyte Esterase Urine WBC (Auto) Urine RBC (Auto) U Hyaline Cast (Auto) U Epithel Cells (Auto) Urine Bacteria (Auto) PG Care Time/CCT Total # of Minutes Spent Total Time Spent with Patient: Total time spent is greater than 50% in coordination of care (as documented) at patient's floor/unit and/or counseling patient:
--- NOTE | 2019-03-17 11:47 | Discharge Summary ---
Date of Service March 17, 2019 Admission HPI Per Admitting Provider 53 year old male who presents to the ED with scrotal pain, swelling, and redness. Patient reports symptoms of been going on for the past couple of weeks. He was seen in PCPs office on 03/11 and started on ciprofloxacin for suspected epididymitis. Outpatient scrotal ultrasound was obtained showing multiple right spermatocele and 9 mm left spermatocele versus epididymal cyst. Patient has had continued symptoms. He reports no relief since starting the ciprofloxacin. Pain is located at the base of his scrotum. Initially patient was only having pain with sitting however now pain occurs with any activity. Patient denies any urinary symptoms of hematuria or dysuria. No penile discharge. No open areas on the scrotum. Denies rectal pain with bowel movements. One night he woke up feeling hot and diaphoretic however did not take his temperature. Denies chills or rigors. No chest pain or shortness of breath. Denies lightheadedness, dizziness, diaphoresis, syncopal events. No abdominal pain, nausea, vomiting, diarrhea. In the ED, labs show WBC 17K. Scrotal ultrasound was obtained showing small bilateral epididymal cyst. CT ABD/pelvis negative for acute findings. Patient was given IV ceftriaxone, IV Toradol, IVF. Admission Exam Per Admitting Provider Constitutional: WD/WN, vitals as above Eyes: PERRL, conjunctivae normal, anicteric sclerae ENMT: external ear and nose normal, oropharynx normal Respiratory: normal respiratory effort, lungs clear to auscultation Cardiovascular: Rate/Rhythm: regular rhythm and + tachycardic Vessels: normal peripheral pulses Extremities: no edema Gastrointestinal (Abdomen): normal bowel sounds, soft, nontender, no hepatosplenomegaly Musculoskeletal: no cyanosis or clubbing, extremities motor strength 5/5 Skin: no rashes, warm and dry Neurologic: PERRL, EOMI, accommodation nl, no face palsy, no dysarthria Psychiatric: A+Ox3, euthymic affect Genitourinary: + external tenderness (tenderness to base of scrotum), + edematous scrotum and + erythematous scrotum no penile drainage noted Principal Diagnosis perineal abscess scrotal cellulitis Discharge Exam CONSTITUTIONAL: WNWD, vitals as above, generally well-appearing EYES: normal conjunctivae, no scleral icterus ENT: MMM RESPIRATORY: clear to auscultation bilaterally, no crackles, rales or wheezes, normal respiratory effort CARDIOVASCULAR: regular rate and rhythm, S1 and 2 heard without murmurs, morris ps or rubs, no JVD, no peripheral edema GASTROINTESTINAL: soft, nontender, nondistended : perineal wound with expected scrotal erythema, and resolution of previous erythema. Wound was packed. Testes enlarged and symmetric, normal phallus. MUSCULOSKELETAL: strength 5/5 throughout, head is normocephalic and atraumatic SKIN: warm and dry, wound as above. NEUROLOGIC: CN 2-12 grossly intact, no sensory deficit, normal cognition, normal speech, no tremor, no gross focal deficits. PSYCHIATRIC: alert cooperative and oriented to person, place and time. Discharge Data Allergies Allergy/AdvReac Type Severity Reaction Status Date / Time Penicillins AdvReac Rash Unverified 03/15/19 14:19 Consultations 03/15/19 19:37 ED Decision to Admit Stat 03/15/19 21:15 Consult Urology Routine Ordered Studies 03/15/19 14:31 CT abd pelvis wo con Stat US scrotum/testicle Stat Hospital Course (1) Perineal abscess: (2) Cellulitis of scrotum: 53-year-old man presented to the emergency room with scrotal pain swelling and redness for the past couple of weeks. He had been on a recent course of ciprofloxacin for suspected epididymitis. An outpatient scrotal ultrasound was obtained revealed multiple right spermatoceles and a 9 mm left spermatocele versus epididymal cyst. Despite the antibiotics patient had continued symptoms. Work-up included an abdomen pelvis CT which revealed no acute process in the abdomen or pelvis. A repeat testicular ultrasound revealed normal testes bilaterally with normal vascular flow confirmed and small bilateral epididymal cysts. He was placed on ceftriaxone and admitted to the Hospitalist service. Urology was consulted and found a large loculated area of perineal inflammation with 2 apparent areas of connection in midline and fluctuance consistent with a perineal abscess. A bedside incision and drainage was performed and the wound was packed. The following day his wound was repacked and he was continued on antibiotics. He was discharged on oral Bactrim with close primary care and urology follow-up planned. At time of discharge he was hemodynamic stable and afebrile and tolerating p.o. His symptoms had resolved and he was experiencing minimal postoperative pain. His was taught how to care for the wound and daily packing was recommended at home. Postoperative instructions were reviewed. Physical exam was unremarkable outside of a perineal wound without surrounding erythema. Total Time Total Time Spent Total Time Spent (In Minutes): 60 Total Time Includes: Examination of the Patient, Discharge Planning, Medication Reconciliation, Communication With Other Providers and Other (arrange followup) Discharge Plan Discharge Items Patient Disposition: Home - Self-Care Reason For Visit: SCROTAL CELLULITIS Discharge Diagnosis: perineal abscess scrotal cellulitis Condition on Discharge: Good Activity: Resume your previous activity Non-emergency contact: Primary Care Provider Call non-emergency contact if: you have any medication questions, your symptoms worsen, your pain is not controlled, your pain is worsening, your pain is unusual for you, your pain is concerning for you and you have a fever Follow-up/Referrals: Hollis Ernst MD [Physician] - Иван Anaya MD [Primary Care Provider] - Diet: Regular Addtl Attending Provider Instructions: Please continue the antibiotic for the full course. Please continue to repack the wound on a daily basis until the wound heals up. Please follow all activity instructions for bathing and cleaning the wound as advised by the Urologist. Avoid soaking in a bath or pool until the wound is closed. Use of over the counter medications for pain control is fine including Ibuprofen or Tylenol as needed. It is recommended that you follow-up with your primary care physician within one week of discharge to ensure you are tolerating the antibiotic provided and that your wound healing is progressing as expected. Someone from our team will contact you after the weekend to help you set that uop. Please follow-up with Dr. Ernst at [facility] as instructed. It was a pleasure taking care of you! Please call if you have any questions or problems. You can reach a [facility] hospitalist on duty at [facility] 24 hours a day by calling [phone]. Take care of yourself. Sandi Marcus, [facility] Center[facility] Pending Studies at Discharge: No Stand-Alone Forms: My [facility] [employer], Smoking Cessation Medications and DC Order Prescriptions: New sulfamethoxazole-trimethoprim 800-160 mg Tablet 1 tab PO Q12 10 Days Qty: 20 RF: 0 ibuprofen 800 mg tablet 800 mg PO Q8H PRN (Reason: pain) Qty: 60 RF: 0 Discontinued ciprofloxacin HCl [Cipro] 500 mg Tablet 500 mg PO Q12H RF: 0 atorvastatin 20 mg tablet 20 mg PO DAILY RF: 0 Discharge Orders: Discharge Order (Routine); Ordered 03/17/19 Ordered By: Sandi Lomeli/Other Patient Handouts: Ibuprofen Oral tablet Admission Data Admit Date/Time: 03/16/19 16:59 Attending Provider: Sandi Marcus Admit Provider: Bailey Morales Primary Care Provider: Иван Anaya Other Providers: Eulalio Gardner ; Hollis Ernst I. Other Interventions: Discharge Summary Assessment (RN) Last Done: 03/17/19 12:04 DC Date/Time DO NOT enter until pt leaves facility: 03/17/19 12:35
== END 2019-03-17 12:35 | disposition home or self-care (01) ==
LOC: 3N 12:57 → ED 12:57 → SUATTDRO 20:12 → 3N 21:05

== ENCOUNTER 2024-01-14 09:47 | Inpatient (IN) ==
--- OUTSIDE RECORDS SUMMARY | 2024-01-14 09:54 | External Medical Summary | Summary of Care ---
Author Name Unknown Organization [facility] Address [address] [place] [address] Phone [phone] Care Team Providers Care Sponge Hooker Name Role Phone Eliceo Oneill DO Primary Care Provider Reason for Visit * Reason Comments Return Visit Pt here for 8 mo ret urn visit. Pt c/o sciatic pain noted intermittently. Pt had surgery 2 months for melanoma on the back. Pt not taking pain med. Encounter Details Date Type Department Care Team ([facility] st Contact Info) Description 07/25/2023 3:00 PM EDT Office Visit Family Practice [facility] [address] [facility] [address] Eliceo Oneill DO [address] [facility] [place] [address] Prediabetes*; Dyslipidemia; Abnormal TSH; HTN, goal below 130/80; BPH without obstruction/lower urinary tract symptoms; Special screening for malignant neoplasms, colon; Melanoma of back (HCC) Allergies Active Allergy Reactions Criticality Noted Date Comments Penicillins Rash Low 06/23/2015 documented as of this encounter (statuses as of 07/25/2023) Medications Medication Sig Dispensed Refills Start Date End Date Status Atorvastatin Calcium 20 MG Oral Tablet (Lipitor) Take 1 Tablet by mouth every other day. 45 Tablet 5 11/21/2022 Active documented as of this encounter (statuses as of 07/25/2023) Active Problems Problem Noted Date Diagnosed Date Melanoma of back 05/22/2023 Hx of actinic keratosis 05/11/2022 Tinnitus aurium, bilateral 10/30/2021 History of 2019 novel coronavirus disease (COVID -19) 10/30/2021 Prediabetes 11/23/2020 Overview: Per Prediabetes protocol Dyslipidemia 03/11/2019 documented as of this encounter (statuses as of 07/25/2023) Resolved Problems Problem Noted Date Diagnosed Date Resolved Date Dysplastic nevus of trunk 01/16/2019 Dyslipidemia, goal LDL below 130 07/09/2015 03/11/2019 documented as of this encounter (statuses as of 07/25/2023) Immunizations Name Administration Dates Next Due COVID-19 mRNA, LNP-s, No Pre serve, 2-Dose Series (Moderna) 04/28/2020 Seasonal Influenza, PF, 6 M & above, IM , (FluLaval or Fluzone) 01/15/2022 TDAP (age 10 and older)(Boostrix) 06/23/2015 documented as of this encounter Social History Tobacco Use Types Packs/Day Years Used Date Smoking Tobacco: Former Cigarettes 0.5 4 Passive Smoke Exposure: Never Smokeless Tobacco: Never Alcohol Use Standard Drinks/Week Comments Yes 1 (1 standard drink = 0.6 oz pur e alcohol) PHQ-2 Answer Date Recorded PHQ-2 Score 0 03/11/2019 Hunger Vital Sign Answer Date Recorded Within the past 12 months, y ou worried that your food would run out before you got the money to buy more. Never true 11/04/19 23 Within the past 12 months, t he food you bought just didn't last and you didn't have money to get more. Never true 11/03/2022 Sex and Gender Information Value Date Recorded Sex Assigned at Male 10/18/2021 9:04 AM EDT Gender Identity Male 10/18/2021 9:04 AM EDT Sexual Orientation Straight 10/18/2021 9: 04 AM EDT Job Start Date Occupation Industry Not on file Not on file Not on file documented as of this encounter Last Filed Vital Signs Vital Sign Reading Time Taken Comments Blood Pressure 124/76 07/25/2023 2:50 PM EDT Pulse 104 07/25/2023 2:50 PM EDT Temperature 36.1 C (97 F) 07/25/2023 2:50 PM EDT Respiratory Rate 16 07/25/2023 2:50 PM EDT Oxygen Saturation 97% 07/25/2023 2:50 PM EDT Inhaled Oxygen Concentration - - Weight 116.7 kg (257 lb 6 oz) 07/25/2023 2:50 PM EDT Height - - Body Mass Index 33.96 05/30/2023 12:28 PM EDT documented in this encounter Progress Notes * Eliceo Oneill, DO - 07/25/2023 2:58 PM EDT Images from the original note were not included. Assessment and Plan Prediabetes Labs pending for tomorrow - HEMOGLOBIN A1C; Future Dyslipidemia - COMPREHENSIVE METABOLIC PANEL; Future - LIPID PANEL WITH DIRECT LDL IF TG IS HIGH; Future Abnormal TSH Will recheck HTN, goal below 130/80 Stable bp well controlled - CBC WITH WBC DIFFERENTIAL; Future - ALBUMIN / CREATININE RATIO, URINE; Future BPH without obstruction/lower urinary tract symptoms Will get psa tomorrow Obstructive sx are mild - PSA; Future Special screening for malignant neoplasms, colon Due for repeat cologuard screen - COLOGUARD Melanoma of back (HCC) Doing well s/p surgery Continue to follow with dermatology History of Present Illness Pato Lucia is a 58 year old male that presents for Return Visit (Pt here for 8 mo return visit.Pt c/o sciatic pain noted intermittently. Pt had surgery 2 months for melanoma on the back. Pt not taking pain med.) Presents today in f/u Has not been able to get labs yet But plans to go tomorrow Overall the low back has been stable He enjoys playing tennis And it is sore near the end of games Physical Exam Vitals: 07/25/23 1450 Temp: 36.1 C (97 F) Pulse: 104 Resp: 16 SpO2: 97% BP: 124/76 Physical Exam Constitutional: Appearance: Normal appearance. HENT: Head: Normocephalic and atraumatic. Eyes: Extraocular Movements: Extraocular movements intact. Pupils: Pupils are equal, round, and reactive to light. Cardiovascular: Rate and Rhythm: Normal rate and regular rhythm. Pulmonary: Effort: Pulmonary effort is normal. Breath sounds: Normal breath sounds. Neurological: General: No focal deficit present. Mental Status: He is alert and oriented to person, place, and time. Psychiatric: Mood and Affect: Mood normal. Behavior: Behavior normal. Wrap-Up Follow-up: Return in about 9 months (around 04/26/2024). | Check-out note: Every 9-12 months - labs prior to next appointment as well as tomorrow Time: Total time today was 29 minutes excluding any time spent in the performance of separately billed services. documented in this encounter Nursing Notes * Alejandra Lew LPN - 07/25/2023 2:49 PM EDT The patient has been properly identified by confirmation of name and date of . Chief Complaint Patient presents with Return Visit Pt here for 8 mo return visit. Pt c/o sciatic pain noted intermittently. Pt had surgery 2 months for melanoma on the back. Pt not taking pain med. documented in this encounter Plan of Treatment Upcoming Encounters Date Type Department Care Team (Late st Contact Info) Description 10/26/2023 11:40 AM EDT Office Visit Dermatology [facility] [address] [place] [address] Gema Nance PA-C [address] [phone] 04/29/2024 12:40 PM EST Office Visit Family Practice [facility] [address] [facility] [place] [address] Eliceo Oneill DO [address] [place] [address] 06/27/2024 12:40 PM EDT Office Visit Dermatology [facility] [address] [place] [address] Gema Nance PA-C [address] [facility] [place] [phone] Scheduled Orders Name Type Priority Associated Diagnoses Orde r Schedule CBC WITH WBC DIFFERENTIAL Lab Routine HTN, goal below 130/80 Expected: 04/20/2024 (Approximate), Expires: 07/24/2024 COMPREHENSIVE METABOLIC PANEL Lab Routine Dyslipidemia Expected: 04/20/2024 (Approximate), Expires: 07/24/2024 HEMOGLOBIN A1C Lab Routine Prediabetes Expected: 04/20/2024 (Approximate), Expires: 07/24/2024 ALBUMIN / CREATININE RATIO, URINE Lab Routine HTN, goal below 130/80 Expected: 04/20/2024 (Approximate), Expires: 07/24/2024 LIPID PANEL WITH DIRECT LDL IF TG IS HIGH Lab Routine Dyslipidemia Expected: 04/20/2024 (Approximate), Expires: 07/24/2024 PSA Lab Routine BPH without obstruction/lower urinary tract symptoms Expected: 04/20/2024 (Approximate), Expires: 07/24/2024 COLOGUARD Lab Unrestricted Lab Special screening for malignant neoplasms, colon Ordered: 07/25/2023 Health Maintenance Due Date Last Done Comments Hepatitis B (1 of 3 - 19+ 3-dose series) 1985 Colonoscopy 2011 Fecal Occult Blood Test 2011 Sigmoidoscopy 2011 Zoster Vaccines (1 of 2) 2016 COVID-19 Vaccine ( season) 2022 02/17/2021, 05/26/2020, 04/28/2020 HbA1c 05/20/2023 05/19/2022, 10/12, 11/19/2020 Influenza Vaccine (FLU shot) (Season Ended) 2023 01/15/2022, 12/11/2019, 12/22/2017 Cologuard 12/03/2023 12/02/2020, 11/11, 11/25/2020, Additional history exists Colorectal Cancer Screening 12/03/2023 Depression Screening 07/24/2024 07/25/2023 DTaP,Tdap,and Td Vaccines (2 - Td or Tdap) 06/22/2025 06/23/2015 Lipid Panel 11/03/2026 11/03/2021, 11/2020, 10/03/2017, Additional history exists GARDASIL-HPV IMMUNIZATION SERIES Aged Out No longer eligible based on patient's age to complete this topic MENINGOCOCCAL (MENACTRA/MENVEO) Aged Out No longer eligible based on patient's age to complete this topic Pneumococcal Vaccine: Pediatrics (0 to 5 Years) and At-Risk Patients (6 to 64 Years) Aged Out No longer eligible based on patient's age to complete this topic documented as of this encounter Medical Devices Not on filedocumented as of this encounter Visit Diagnoses Diagnosis Prediabetes- Primary Other abnormal glucose Dyslipidemia Other and unspecified hyperlipidemia Abnormal TSH Other abnormal clinical finding HTN, goal below 130/80 Unspecified essential hypertension BPH without obstruction/lower urinary tract symptoms Hypertrophy of prostate without urinary obstruction and other lower urinary tract symptoms (LUTS) Special screening for malignant neoplasms, colon Melanoma of back (HCC) Malignant melanoma of skin of trunk, except scrotum documented in this encounter Advance Directives Latest Code Status on File Code Status Date Activated Date Inactivated Comments Full Code 05/30/2023 12:31 PM 05/30/2023 9:47 PM Question Answer Comments Discussion of Advance Directives occurred with: Not Discussed due to patient's condition Care Teams Sponge Hooker Relationship Specialty Start Date End Date Eliceo Oneill DO [address] [id number] PCP - General Family Medicine 11/17/20 documented as of this encounter"
--- OUTSIDE RECORDS SUMMARY | 2024-01-14 09:54 | External Medical Summary ---
Author Name Unknown Address Unknown Organization [id number]:[facility] - [address] [place] [address] Laboratory Report Ordering Provider Test Date Status JOANNA LOGAN 07/26/2023 09:20:26 Final Observation Date Value Abnormality Reference (Units ) Status TSH 07/26/2023 09:20:26 6.06 Above high normal 0. 27-4.20 (uIU/mL) Final Performing Location [facility] - [address] [place] [address]
--- OUTSIDE RECORDS SUMMARY | 2024-01-14 09:54 | External Medical Summary ---
Author Name Unknown Address Unknown Organization [id number][place] [place] [address] [place] [address] Laboratory Report Ordering Provider Test Date Status DARREN JACKSON 07/26/2023 09:20:26 Final Observation Date Value Abnormality Reference (Units ) Status MYCODE SPECIMEN-SST 07/26/2023 09:20:26 Freezing of extracted DNA, whole blood and/or serum. Final Performing Location LABORATORY [facility] - [address] [place] [id number]
--- OUTSIDE RECORDS SUMMARY | 2024-01-14 09:54 | External Medical Summary | Summary of Care ---
Author Name Unknown Organization [facility] Address [address] [place] [address] Phone [phone] Care Team Providers Care Flat Sorter Processor Name Role Phone Eliceo Oneill DO Primary Care Provider Reason for Visit * Reason Comments Outpatient Testing Encounter Details Date Type Department Care Team (Late st Contact Info) Description 07/26/2023 9:20 AM EDT Laboratory Laboratory, [facility] [address] [place] [phone] [facility] [address] [place] [address] Abnormal TSH; Dyslipidemia; Prediabetes; BPH with obstruction/lower urinary tract symptoms; [employer] Other*[id number] Allergies Active Allergy Reactions Criticality Noted Date Comments Penicillins Rash Low 06/23/2015 documented as of this encounter (statuses as of 07/26/2023) Medications Medication Sig Dispensed Refills Start Date End Date Status Atorvastatin Calcium 20 MG Oral Tablet (Lipitor) Take 1 Tablet by mouth every other day. 45 Tablet 5 11/21/2022 Active documented as of this encounter (statuses as of 07/26/2023) Active Problems Problem Noted Date Diagnosed Date Melanoma of back 05/22/2023 Hx of actinic keratosis 05/11/2022 Tinnitus aurium, bilateral 10/30/2021 History of 2019 novel coronavirus disease (COVID -19) 10/30/2021 Prediabetes 11/23/2020 Overview: Per Prediabetes protocol Dyslipidemia 03/11/2019 documented as of this encounter (statuses as of 07/26/2023) Resolved Problems Problem Noted Date Diagnosed Date Resolved Date Dysplastic nevus of trunk 01/16/2019 Dyslipidemia, goal LDL below 130 07/09/2015 03/11/2019 documented as of this encounter (statuses as of 07/26/2023) Immunizations Name Administration Dates Next Due COVID-19 [...] on file documented as of this encounter Plan of Treatment Upcoming Encounters Date Type Department Care Team (Late st Contact Info) Description 10/26/2023 11:40 AM EDT Office Visit [facility] [address] [place] [address] Gema Nance PA-C [address] [place] [phone] 04/29/2024 12:40 PM EST Office Visit Family Practice [facility] [address] [place] [address] Eliceo Oneill DO [address] [place] [address] 06/27/2024 12:40 PM EDT Office Visit Dermatology [facility] [address] [place] [address] Gema Nance PA-C [address] [place] [phone] Pending Results Name Type Priority Associated Diagnoses Date /Time TSH WITH FREE T4 IF INDICATED Lab Routine Abnormal TSH 07/26/2023 9:20 AM EDT COMPREHENSIVE METABOLIC PANEL Lab Routine Dyslipidemia 07/26/2023 9:20 AM EDT HEMOGLOBIN A1C Lab Routine Prediabetes 07/26/2023 9:20 AM EDT LIPID PANEL WITH DIRECT LDL IF TG IS HIGH Lab Routine Prediabetes Dyslipidemia 07/26/2023 9:20 AM EDT PSA Lab Routine BPH with obstruction/lower urinary tract symptoms 07/26/2023 9:20 AM EDT MYCODE SUBSEQUENT ADULT Lab Routine [employer] Other*[id number] 07/26/2023 9:20 AM EDT MYCODE SST1 Lab Routine [employer] Other*[id number] 07/26/2023 9:20 AM EDT MYCODE SST2 Lab Routine [employer] Other*[id number] 07/26/2023 9:20 AM EDT Health Maintenance Due Date Last Done Comments [...] as of this encounter Visit Diagnoses Diagnosis Abnormal TSH Other abnormal clinical finding Dyslipidemia Other and unspecified hyperlipidemia Prediabetes Other abnormal glucose BPH with obstruction/lower urinary tract symptoms Hypertrophy of prostate with urinary obstruction and other lower urinary tract symptoms (LUTS) [employer] Other*[id number] documented in this encounter Advance Directives Latest Code Status on File Code Status Date Activated Date Inactivated Comments Full Code 05/30/2023 12:31 PM 05/30/2023 9:47 PM Question Answer Comments Discussion of Advance Directives occurred with: Not Discussed due to patient's condition Care Teams Flat Sorter Processor Relationship Specialty Start Date End Date Eliceo Oneill DO [address] [address] PCP - General Family Medicine 11/17/20 documented as of this encounter
--- OUTSIDE RECORDS SUMMARY | 2024-01-14 09:54 | External Medical Summary | Summary of Care ---
Author Name Unknown Organization [facility] Address [address] [place] [address] Phone [phone] Care Team Providers Care Drag Sawyer Name Role Phone Eliceo Oneill DO Primary Care Provider Encounter Details Date Type Department Care Team (Late st Contact Info) Description 08/03/2023 Orders Only Family Practice [facility] [address] [place] [address] Doretha Calero CRNP [address] [place] [address] Prediabetes*; Dyslipidemia; Abnormal TSH; HTN, goal below 130/80 Allergies Active Allergy Reactions Criticality Noted Date Comments Penicillins Rash Low 06/23/2015 documented as of this encounter (statuses as of 08/03/2023) Medications Medication Sig Dispensed Refills Start Date End Date Status Atorvastatin Calcium 20 MG Oral Tablet (Lipitor) Take 1 Tablet by mouth every other day. 45 Tablet 5 11/21/2022 Active documented as of this encounter (statuses as of 08/03/2023) Active Problems Problem Noted Date Diagnosed Date Melanoma of back 05/22/2023 Hx of actinic keratosis 05/11/2022 Tinnitus aurium, bilateral 10/30/2021 History of 2019 novel coronavirus disease (COVID -19) 10/30/2021 Prediabetes 11/23/2020 Overview: Per Prediabetes protocol Dyslipidemia 03/11/2019 documented as of this encounter (statuses as of 08/03/2023) Resolved Problems Problem Noted Date Diagnosed Date Resolved Date Dysplastic nevus of trunk 01/16/2019 Dyslipidemia, goal LDL below 130 07/09/2015 03/11/2019 documented as of this encounter (statuses as of 08/03/2023) Immunizations Name Administration Dates Next Due COVID-19 [...] pur e alcohol) PHQ-2 Answer Date Recorded PHQ Adult Total Score 0 07/25/2023 Hunger Vital Sign Answer Date Recorded Within [...] State Carina Rodriguez [address] [place] [address] Gema Nance PA-C [address] [place] [phone] 04/29/2024 12:40 PM EST Office Visit Family Practice [facility] [address] [place] [address] Eliceo Oneill DO [address] [place] [address] 06/27/2024 12:40 PM EDT Office Visit Dermatology [facility] [address] [facility] [place] [address] Gema Nance PA-C [address] [facility] [place] [phone] Scheduled Orders Name Type Priority Associated Diagnoses Orde r Schedule BASIC METABOLIC PANEL Lab Routine HTN, goal below 130/80 Expected: 02/03/2024 (Approximate), Expires: 08/02/2024 HEMOGLOBIN A1C Lab Routine Prediabetes Expected: 02/03/2024 (Approximate), Expires: 08/02/2024 TSH WITH FREE T4 IF INDICATED Lab Routine Abnormal TSH Expected: 02/03/2024 (Approximate), Expires: 08/02/2024 Health Maintenance Due Date Last Done Comments Hepatitis B (1 of 3 - 19+ 3-dose series) 1985 Colonoscopy 2011 Fecal Occult Blood Test 2011 Sigmoidoscopy 2011 Zoster Vaccines (1 of 2) 2016 COVID-19 Vaccine ( season) 2022 02/17/2021, 05/26/2020, 04/28/2020 Influenza Vaccine (FLU shot) (Season Ended) 2023 01/15/2022, 12/11/2019, 12/22/2017 Cologuard 12/03/2023 12/02/2020, 11/11, 11/25/2020, Additional history exists Colorectal Cancer Screening 12/03/2023 Depression Screening 07/24/2024 07/25/2023 HbA1c 07/25/2024 07/26/2023, 03/0 11/2022, 11/03/2021, Additional history exists DTaP,Tdap,and Td Vaccines (2 - Td or Tdap) 06/22/2025 06/23/2015 Lipid Panel 07/25/2028 07/26/2023, 0806/2021, 11/19/2020, Additional history exists GARDASIL-HPV IMMUNIZATION SERIES Aged [...] HTN, goal below 130/80 Unspecified essential hypertension documented in this encounter Advance Directives * Full Code (Latest Code Status on File) Date Activated Date Inactivated Comments 05/30/2023 12:31 PM 05/30/2023 9:47 PM Question Answer Comments Discussion of Advance Direct vida occurred with: Not Discussed due to patient's condition Care Teams Drag Sawyer Relationship Specialty Start Date End Date Eliceo Oneill DO [address] [address] PCP - General Family Medicine 11/17/20 documented as of this encounter
--- OUTSIDE RECORDS SUMMARY | 2024-01-14 09:54 | External Medical Summary | Summary of Care ---
Author Name Unknown Organization [facility] Address [address] [place] [address] Phone [phone] Care Team Providers Care Corporate Wellness Coordinator Name Role Phone Eliceo Oneill DO Primary Care Provider Reason for Visit * Reason Onset Date Comments Health Maintenance 10/03/2023 Encounter Details Date Type Department Care Team ([facility] st Contact Info) Description 10/03/2023 Telephone Family Practice [facility] [address] [facility] [place] [address] Eliceo Oneill DO [address] [facility] [place] [id number] Health Maintenance Allergies Active Allergy Reactions Criticality Noted Date Comments Penicillins Rash Low 06/23/2015 documented as of this encounter (statuses as of 10/03/2023) Medications Medication Sig Dispensed Refills Start Date End Date Status Atorvastatin Calcium 20 MG Oral Tablet (Lipitor) Take 1 Tablet by mouth every other day. 45 Tablet 5 11/21/2022 Active documented as of this encounter (statuses as of 10/03/2023) Active Problems Problem Noted Date Diagnosed Date Melanoma of back 05/22/2023 Hx of actinic keratosis 05/11/2022 Tinnitus aurium, bilateral 10/30/2021 History of 2019 novel coronavirus disease (COVID -19) 10/30/2021 Prediabetes 11/23/2020 Overview: Per Prediabetes protocol Dyslipidemia 03/11/2019 documented as of this encounter (statuses as of 10/03/2023) Resolved Problems Problem Noted Date Diagnosed Date Resolved Date Dysplastic nevus of trunk 01/16/2019 Dyslipidemia, goal LDL below 130 07/09/2015 03/11/2019 documented as of this encounter (statuses as of 10/03/2023) Immunizations Name Administration Dates Next Due COVID-19 [...] money to get more. Never true 11/03/2022 Childcare Answer Date Recorded Do you feel overwhelmed with taking care of a child, family member or friend? No 11/03/2022 Does your family need help f inding childcare? (Household - for ages 0-17 years) Not on file 11/03/2022 Clothing Answer Date Recorded Have you been unable to get clothing when it was really needed? No 11/03/2022 Is your family able to get c lothes or diapers when needed? (Household - for ages 0-17 years) Not on file 11/03/2022 Personal Safety Answer Date Recorded Do you feel unsafe or have concerns for your saf ety? No 11/03/2022 Do you have concerns for you r family's safety? (Household - for ages 0-17 years) Not on file 11/03/2022 Utilities Answer Date Recorded Do you have trouble paying y our heating, water, or electric bill? No 11/03/2022 Is your family able to pay t he heat, water, or electric bill? (Household - for ages 0-17 years) Not on file 11/03/2022 Does your family have access to good internet? (Household - for ages 0-17 years) Not on file 11/03/2022 Employment Status Answer Date Recorded Are you unemployed or without regular income? No 11/03/2022 Does the household have a [place] service [employer] source of income? (Household - for ages 0-17 years) Not on file 11/03/2022 Social Connections Answer Date Recorded How often do you feel lonely or isolated from th ose around you? Rarely 11/03/2022 Financial Resource Strain Answer Date R ecorded Do you have any trouble payi ng for your medications, or do you think you might in the future? No 11/03/2022 Does your family have troubl e paying for medicine? (Household - for ages 0-17 years) Not on file 11/03/2022 Transportation Needs Answer Date Record ed READ ONLY Do you have troubl e getting a ride to medical visits or work? Never True 11/03/2022 Does your family have a hard time getting a ride to doctors visits? (Household - for ages 0-17 years) Not on file 11/03/2022 Has lack of transportation k ept you from medical appointments, meetings, work, or from getting things needed for daily living? Check all that apply. (Adult - for ages 18 years and over) Not on file 11/03/2022 Do you (or your family) have trouble finding or paying for a ride (transportation)? (Household - for ages 0-17 years) Not on file 11/03/2022 Housing Stability Answer Date Recorded Do you currently live in a s helter or have no steady place to sleep at night? No 11/03/2022 READ ONLY Do you think you a re at risk of becoming homeless? No 11/03/2022 Does your family worry about paying for your home or becoming homeless? (Household - for ages 0-17 years) Not on file 0 11/03/2022 Are you homeless or worried that you might be in the future? (Adult - for ages 18 years and over) Not on file Are you (or your family) denisa eless or worried that you might be in the future? (Household - for ages 0-17 years) Not on file Food Insecurity Answer Date Recorded Do you need food for this week? No 11/03/2022 Are you able to get enough f ood for your family? (Household - for ages 0-17 years) Not on file 11/03/2022 Does your family need food t his week? (Household - for ages 0-17 years) Not on file 11/03/2022 Do you always have enough fo od for your family? (Household - for ages 0-17 years) Not on file 11/03/2022 Sex and Gender Information Value Date Recorded Sex Assigned at Male 10/18/2021 9:04 AM EDT Gender Identity Male 10/18/2021 9:04 AM EDT Sexual Orientation Straight 10/18/2021 9: 04 AM EDT Job Start Date Occupation Industry Not on file Not on file Not on file documented as of this encounter Miscellaneous Notes * Telephone Encounter - Rubina Tinajero LPN - 10/03/2023 3:42 PM EDT Care Gaps Comprehensive Care Outreach Last Office/Telemedicine Visit: 07/25/2023 (in office), 11/17/2020 (telemedicine) Next Office Visit: 04/29/2024 Hemoglobin AIC Results: Lab Results Component Value Date/Time HEMOGLOBIN A1C - [facility] 6.4 (H) 07/26/2023 09:20 AM HEMOGLOBIN A1C - [facility] 6.2 (H) 05/19/2022 09:02 AM HEMOGLOBIN A1C - [facility] 6.2 (H) 11/03/2021 10:24 AM BP Readings from Last 1 Encounters: 07/25/23 124/76 Reviewed Health Maintenance below: Health Maintenance Topic Date Due Hepatitis B Vaccine (1 of 3 - 19+ 3-dose series) Never done Zoster Vaccines (1 of 2) Never done COVID-19 Vaccine ( - season) 2022 Colorectal Cancer Screening 12/03/2023 Influenza Vaccine (FLU shot) (1) 11/12/2023 Cologuard follow Care Gap Outreach Action Taken: [employer] message sent documented in this encounter Plan of Treatment Upcoming Encounters Date Type Department Care Team (Late st Contact Info) Description 10/26/2023 11:40 AM EDT Office Visit Dermatology [facility] [address] [place] [address] Gema Nance PA-C [address] [facility] [place] [address] 04/29/2024 12:40 PM EST Office Visit Family Practice [facility] [address] [place] [address] Eliceo Oneill, [address] [place] [address] 06/27/2024 12:40 PM EDT Office Visit Dermatology [facility] [address] [place] [address] Gema Nance PA-C [address] [facility] [place] [address] Health Maintenance Due Date Last Done Comments Hepatitis B Vaccine (1 of 3 - 19+ 3-dose series) 1985 Colonoscopy 2011 Fecal Occult Blood Test 2011 Sigmoidoscopy 2011 Zoster Vaccines (1 of 2) 2016 COVID-19 Vaccine ( season) 2022 02/17/2021, 05/26/2020, 04/28/2020 Influenza Vaccine (FLU shot) (#1) 2023 01/15/2022, 12/11/2019, 12/22/2017 Cologuard 12/03/2023 12/02/2020, 11/11, 11/25/2020, Additional history exists Colorectal Cancer Screening 12/03/2023 Depression Screening 07/24/2024 07/25/2023 HbA1c 07/25/2024 07/26/2023, 03/0 11/2022, 11/03/2021, Additional history exists DTaP,Tdap,and Td Vaccines (2 - Td or Tdap) 06/22/2025 06/23/2015 Lipid Panel 07/25/2028 07/26/2023, 10/12, 11/19/2020, Additional history exists HPV (Gardasil) Vaccine Aged Out No lo nger eligible based on patient's age to complete [...] Not on filedocumented as of this encounter Advance Directives * Full Code (Latest Code Status on File) Date Activated Date Inactivated Comments 05/30/2023 12:31 PM 05/30/2023 9:47 PM Question Answer Comments Discussion of Advance Direct vida occurred with: Not Discussed due to patient's condition Care Teams Corporate Wellness Coordinator Relationship Specialty Start Date End Date Eliceo Oneill DO [address] [address] PCP - General Family Medicine 11/17/20 documented as of this encounter
--- OUTSIDE RECORDS SUMMARY | 2024-01-14 09:54 | External Medical Summary ---
Author Name Unknown Address Unknown Organization [id number]:LABORATORY [facility] [place] - [address] [place] [address] Laboratory Report Ordering Provider Test Date Status DARREN JACKSON 07/26/2023 09:20:26 Final Observation Date Value Abnormality Reference (Units ) Status MYCODE SPECIMEN-SST 07/26/2023 09:20:26 Freezing of extracted DNA, whole blood and/or serum. Final Performing Location LABORATORY C - [address] [place] [address]
--- OUTSIDE RECORDS SUMMARY | 2024-01-14 09:54 | External Medical Summary ---
Author Name Unknown Address Unknown Organization [id number]:[facility] [place] [address] [facility] [address] Laboratory Report Ordering Provider Test Date Status JOANNA LOGAN 07/26/2023 09:20:26 Final Observation Date Value Abnormality Reference (Units ) Status HbA1C 07/26/2023 09:20:26 6.4 Above high normal 4. 0-5.6 (%) Final The use of HbA1c to monitor glycemic status is based on normal hemoglobin and HbA composition. This test should not be used in patients with abnormal hemoglobin that affects the half life of the red blood cell or the in vivo glycation rates. Glucose, estimated average 07/26/2023 09:20:26 137 Above high normal <126 (mg/dL) Hunter lovelace Performing Location [facility] [place] [address] [facility] [address]
--- OUTSIDE RECORDS SUMMARY | 2024-01-14 09:54 | External Medical Summary ---
Author Name Unknown Address Unknown Organization [id number]:LABORATORY [facility] - [address] [place] [address] Laboratory Report Ordering Provider Test Date Status JOANNA LOGAN 07/26/2023 09:20:26 Final Observation Date Value Abnormality Reference (Units ) Status T4, Free 07/26/2023 09:20:26 1.3 0.9-1.7 (n g/dL) Final Performing Location [facility] - [address] [place] [address]
--- OUTSIDE RECORDS SUMMARY | 2024-01-14 09:54 | External Medical Summary ---
Author Name Unknown Address Unknown Organization [id number]:LABORATORY [facility] - [address] [place] [address] Laboratory Report Ordering Provider Test Date Status JOANNA LOGAN 07/26/2023 09:20:26 Final Observation Date Value Abnormality Reference (Units ) Status LDL, (direct) 07/26/2023 09:20:26 88 <=129 (mg/dL) Final LDL Cholesterol Reference Ra nges (mg/dL):
<70 Target level for high risk ASCVD patient
<100 Optimal for general population
100-129 Near optimal for general population
130-159 Borderline high
160-189 High
>=190 Very high Performing Location [facility] - [address] [place] [address]
--- OUTSIDE RECORDS SUMMARY | 2024-01-14 09:54 | External Medical Summary ---
Author Name Unknown Address Unknown Organization [id number]:LABORATORY [facility] - [address] [place] [address] Laboratory Report Ordering Provider Test Date Status JOANNA LOGAN 07/26/2023 09:20:26 Final Observation Date Value Abnormality Reference (Units ) Status PSA 07/26/2023 09:20:26 0.76 <3.10 (ng/ mL) Final Performing Location LAB[facility] - [address] [place] [address]
--- OUTSIDE RECORDS SUMMARY | 2024-01-14 09:54 | External Medical Summary ---
Author Name Unknown Address Unknown Organization [id number]:LABORATORY [facility] - [address] [place] [address] Laboratory Report Ordering Provider Test Date Status JOANNA LOGAN 07/26/2023 09:20:26 Final Observation Date Value Abnormality Reference (Units ) Status BUN 07/26/2023 09:20:26 14 6-20 (mg/dL) Final Creatinine 07/26/2023 09:20:26 1.2 0.6-1.2 (mg/dL) Final Glomerular filtration rate/1.73 sq M.predicted [Volume Rate/Area] in Serum, Plasma or Blood by Creatinine-based formula (CKD-EPI) 07/26/2023 09:20:26 71 >=60 (mL/min) Final eGFR is calculated based on the CKD-EPI 2020 equation Sodium 07/26/2023 09:20:26 141 135-146 (m mol/L) Final Potassium 07/26/2023 09:20:26 4.4 3.5-5.1 (m mol/L) Final Cl 07/26/2023 09:20:26 104 98-107 (mm ol/L) Final CO2 07/26/2023 09:20:26 26 22-32 (mmo l/L) Final Anion gap 07/26/2023 09:20:26 11 7-15 (mmol /L) Final Glucose 07/26/2023 09:20:26 104 70-120 (mg /dL) Final Albumin 07/26/2023 09:20:26 4.6 3.8-5.0 (g /dL) Final AST (Aspartate aminotransferase) 07/26/2023 09:20:26 33 10-50 (U/L) Fin al Alk Phos 07/26/2023 09:20:26 83 35-130 (U/ L) Final Bilirubin, Total 07/26/2023 09:20:26 0.4 <=1 .2 (mg/dL) Final Calcium 07/26/2023 09:20:26 9.6 8.4-10.2 ( mg/dL) Final Protein 07/26/2023 09:20:26 7.5 6.0-8.3 (g /dL) Final ALT (Alanine aminotransferase) 07/26/2023 09:20:26 67 Above high normal 10-50 (U/L) Final Performing Location LABORATORY [facility] - [address] [facility] [address]
--- OUTSIDE RECORDS SUMMARY | 2024-01-14 09:54 | External Medical Summary | Summary of Care ---
Author Name Unknown Organization [facility] Address [address] [place] [address] Phone [phone] Care Team Providers Care Inventory Accountant Name Role Phone Eliceo Oneill DO Primary Care Provider Reason for Visit * Reason Onset Date Comments Health Maintenance 01/01/2024 Encounter Details Date Type Department Care Team ([facility] st Contact Info) Description 01/01/2024 Telephone Family Practice [facility] [address] [facility] [place] [address] Eliceo Oneill DO [address] [place] [address] Health Maintenance Allergies Active Allergy Reactions Criticality Noted Date Comments Penicillins Rash Low 06/23/2015 documented as of this encounter (statuses as of 01/01/2024) Medications Medication Sig Dispensed Refills Start Date End Date Status Atorvastatin Calcium 20 MG Oral Tablet (Lipitor) Take 1 Tablet by mouth every other day. 45 Tablet 5 11/21/2022 Active documented as of this encounter (statuses as of 01/01/2024) Active Problems Problem Noted Date Diagnosed Date Melanoma of back 05/22/2023 Hx of actinic keratosis 05/11/2022 Tinnitus aurium, bilateral 10/30/2021 History of 2019 novel coronavirus disease (COVID -19) 10/30/2021 Prediabetes 11/23/2020 Overview: Per Prediabetes protocol Dyslipidemia 03/11/2019 documented as of this encounter (statuses as of 01/01/2024) Resolved Problems Problem Noted Date Diagnosed Date Resolved Date Dysplastic nevus of trunk 01/16/2019 Dyslipidemia, goal LDL below 130 07/09/2015 03/11/2019 documented as of this encounter (statuses as of 01/01/2024) Immunizations Name Administration Dates Next Due COVID-19 [...] y our heating, water, or electric bill? (Adult - for ages 18 years and over) Not on file 11/13/2023 Is your family able to pay t he heat, water, or electric bill? (Household - for ages 0-17 years) Not on file 11/13/2023 Does your family have access to good internet? (Household - for ages 0-17 years) Not on file 11/13/2023 Employment Status Answer Date Recorded Are you unemployed or without regular income? No 11/03/2022 Does the household have a re gular source of income? (Household - for ages 0-17 years) Not on file 11/03/2022 Social Connections Answer Date Recorded How often do you feel lonely or isolated from those around you? (Adult - for ages 18 years and over) Not on file 11/13/2023 Financial Resource Strain Answer Date R ecorded [...] Miscellaneous Notes * Telephone Encounter - Rubina TinajeroJOHN - 01/01/2024 11:00 AM EDT Care Gaps Comprehensive Care Outreach Last [...] Zoster Vaccines (1 of 2) Never done Influenza Vaccine (FLU shot) (1) 11/12/2023 COVID-19 Vaccine ( season) 2023 Colorectal Cancer Screening 12/03/2023 Cologuard due already ordered. Not returned yet. Sent a my g Care Gap Outreach Action Taken: Unable to reach documented in this encounter Plan of Treatment Upcoming Encounters Date Type Department Care Team (Late st Contact Info) Description 04/29/2024 12:40 PM EST Office Visit Family Practice [facility] [address] [place] [address] Eliceo Oneill, [address] [place] [address] 06/27/2024 12:40 PM EDT Office Visit Dermatology [facility] [address] [facility] [place] [address] Gema Nance PA-C [address] [facility] [place] [address] Health Maintenance Due Date Last Done Comments Hepatitis B Vaccine (1 of 3 - 19+ 3-dose series) 1985 Colonoscopy 2011 Fecal Occult Blood Test 2011 Sigmoidoscopy 2011 Zoster Vaccines (1 of 2) 2016 COVID-19 Vaccine ( season) 2023 02/17/2021, 05/26/2020, 04/28/2020 Influenza Vaccine (FLU shot) (#1) 2023 01/15/2022, 12/11/2019, 12/22/2017 Cologuard 12/03/2023 12/02/2020, 11/11, 11/25/2020, Additional history exists Colorectal Cancer Screening 12/03/2023 Depression Screening 07/24/2024 07/25/2023 HbA1c 07/25/2024 07/26/2023, 03/0 11/2022, 11/03/2021, Additional history exists DTap/Tdap Vaccines (2 - Td or Tdap) 06/22/2025 [...] Discussed due to patient's condition Care Teams Inventory Accountant Relationship Specialty Start Date End Date Eliceo Oneill DO [address] [place] [address] PCP - General Family Medicine 11/17/20 documented as of this encounter
--- NOTE | 2024-01-14 10:19 | Emergency Department Note ---
Impression & Plan Scrotal abscess, Leukocytosis, Scrotal pain ED Provider Note NAME: MADISON TATUM AGE: 58 SEX: M : 1965 ARRIVES VIA: Walk-In INFORMANT: [Patient] ED PROVIDER(S): [Lazaro Sood MD] CHIEF COMPLAINT: Scrotal pain HISTORY OF PRESENT ILLNESS: The patient is a 58-year-old male with a history of previous perineal abscess. He was seen by urology and did undergo two operations. The patient states that things seemed fine for the longest time but then a week ago, he had a flight layover and had to sit a long time on a hard plastic chair. He began noticing discomfort in the scrotal area after and things have progressed throughout the week. He has noticed some scrotal swelling especially today. He has not had fever or nausea. No urinary complaints, no difficulty moving his bowels. He thinks the abscess has returned. PMHx/PSHx/Social Hx: See Below PHYSICAL EXAM: GENERAL: Patient is in no acute distress. HEENT: No acute trauma, normocephalic atraumatic, mucous membranes moist, no nasal congestion. NECK: No stridor, no adenopathy, no meningismus, trachea is midline. LUNGS: Clear to auscultation bilaterally, no wheeze, no rhonchi, breath sounds equal. HEART: Without murmurs gallops or rubs, regular rate and rhythm. ABDOMEN: Soft, nontender, no peritonitis. EXTREMITIES: No cyanosis, full range of motion of all the joints without pain or difficulty. NEUROLOGIC: Oriented x 3, no acute motor or sensory deficits, no focal weakness. SKIN: No jaundice, no diaphoresis. Groin: The patient has erythema to the entire scrotal sac. There is around a 6 cm area of fullness and increased erythema to the posterior inferior aspect of the scrotal sac. This area is quite tender. No drainage. DIFFERENTIAL DIAGNOSIS: Abscess, cellulitis, gangrene, UTI, cyst, among others. EMERGENCY DEPARTMENT PROCEDURES: MEDICAL DECISION MAKING: There is a moderate leukocytosis, this would be consistent with infection. There is a normal hemoglobin and platelet count. Sodium slightly low but not in need of emergent correction. No renal failure. Lactic acid level was not elevated making sepsis less likely. There was no concerning liver enzyme elevation. Urinalysis did not show findings of infection. Pelvis CT does show a 7 cm scrotal abscess with potential fistula formation. On exam, the patient's scrotum did have a fullness consistent with abscess. There was no drainage. The patient was not toxic or febrile. Patient received IV ceftriaxone as antibiotic coverage. I did speak with urology. The patient is in need of a hospital stay. The patient will require a urologic procedure to drain the abscess. I did speak with case management, I spoke with the patient and his significant other, the on-call hospitalist was consulted. Prior/Outside records/notes reviewed: Previous culture results from the abscess growing coag negative staph. ECG per my interpretation: Indication was surgical need. The ECG shows a normal sinus rhythm with a rate of 89. There is LVH present. There is no acute ST elevation, no PVCs. The QTc was 472. Imaging/x-ray results per my interpretation: Chest x-ray does not show mediastinal widening, pneumonia or pneumothorax. Chronic Medical/Social conditions affecting care: None Care/Management discussed with: Urology-Dr. Beaulieu. Case management and the on-call hospitalist. Level of care consideration(s): After review of the information above and other included data: --I believe the patient requires escalation of care to admission DISPOSITION: Admission Past Med/Surg History Problem List (Updated 01/14/24 @ 16:50 by Lazaro Sood MD) Scrotal pain (Acute) Leukocytosis (Acute) Scrotal abscess (Acute) Sepsis Scrotal abscess Cellulitis of scrotum (Acute) DVT prophylaxis Encounter for pre-operative examination Perineal abscess Prostate cancer screening Medical History (Updated 01/14/24 @ 16:50 by Lazaro Sood MD) H/O drainage of abscess PERINEAL 05/14/2019 [facility] Compressed vertebrae HX OF L2-3 Fatty liver Epididymitis Dyslipidemia Surgical History Status post scrotal varicocelectomy Undescended testicle HX repair as a child Family History Mother Dyslipidemia Family history of breast cancer Father Prostate cancer Sister Family history of breast cancer Social History Smoking Status: Former smoker Second Hand Exposure: Yes ( A CHILD); Do You Dip or Chew Tobacco: No; Hx Alcohol Use: Yes Alcohol type: wine Alcohol Intake Frequency Comment: Weekends Hx Substance Use: No Preferred Language: Irish Communication Ability: Effective [employer] Intern Required: No Beliefs That Will Affect Care: None Current Living Situation: Alone Feels Safe at Home: Yes Assistive Devices: Glasses Allergies Allergies Allergy/AdvReac Type Severity Reaction Status Date / Time Penicillins Allergy Unknown Rash Verified 01/14/24 13:03 Home Meds Home Medications Medication Instructions Recorded Confirmed ibuprofen 800 mg tablet 600 mg PO Q6H PRN pain 05/13/19 01/14/24 atorvastatin 20 mg tablet 20 mg PO DAILY 12/16/20 01/14/24 lactobacillus combination no.4 3 1 cell PO DAILY 01/14/24 01/14/24 billion cell capsule (Probiotic) Results & Data (ED) Vital Signs Vital Signs - 24 hr 01/14/24 09:54 01/14/24 10:27 01/14/24 13:04 Temperature 36.3 C L Temperature Source Temporal Artery Scan Pulse Rate 108 H Pulse Rate [Finger] 96 H 96 H Pulse Rhythm [Finger] Regular Pulse Strength [Finger] Normal Respiratory Rate 20 20 18 Respiratory Effort / Characteristics Non-Labored Spontaneous Non-Labored Respiratory Depth Normal Normal Respiratory Pattern Regular Regular Blood Pressure 173/109 H Blood Pressure [Right Arm] 176/103 H 145/99 H Blood Pressure Mean 130 Blood Pressure Mean [Right Arm] 127 114 Blood Pressure Position [Right Arm] Lying Pulse Oximetry 96 97 98 Oxygen Delivery Method Room Air Room Air Room Air Sepsis Recent Fever Within 48 Hours No Sepsis New/Unexplained Change in Mental Status N/A Sepsis Action Taken by Nursing No Action Required Home Medications Current Medication List: was personally reviewed by me Laboratory Data Attestation: I reviewed the patient's lab results. 01/14/24 10:25 01/14/24 10:25 Lab Results 01/14/24 01/14/24 Range/Units 10:25 10:27 WBC 14.49 H (4.8-10.8) K/ul RBC 4.85 (4.70-6.10) M/uL Hgb 14.1 (14.0-18.0) g/dl Hct 42.0 (42.0-52.0) % MCV 86.6 (80.0-100.0) fL MCH 29.1 (25.0-34.0) pg MCHC 33.6 (32.0-36.0) g/dL RDW Std Deviation 40.9 (36.4-46.3) fL RDW Coeff of Everardo 13.0 (11.5-14.5) % Plt Count 250 (130-400) K/uL MPV 10.3 (9.4-12.4) fL Immature Gran % (Auto) 0.6 % Neut % (Auto) 80.1 % Lymph % (Auto) 11.1 % [place] % (Auto) 7.5 % Eos % (Auto) 0.3 % Baso % (Auto) 0.4 % Neut # (Auto) 11.60 H (1.40-6.50) K/uL Lymph # (Auto) 1.61 (1.20-3.40) K/uL [place] # (Auto) 1.08 H (0.11-0.59) K/uL Eos # (Auto) 0.05 (0.00-0.50) K/uL Baso # (Auto) 0.06 (0.00-0.20) K/uL Immature Gran # (Auto) 0.09 (0.01-0.20) K/uL Sodium 132 L (136-145) mmol/L Potassium 4.4 (3.5-5.1) mmol/L Chloride 102 (98-107) mmol/L Carbon Dioxide 21 (21-32) mmol/L Anion Gap 9 (3-11) BUN 11 (6-23) mg/dl Creatinine 1.05 (0.6-1.4) mg/dl Est Cr Clr Drug Dosing 103.1 ml/min eGFR 82.79 BUN/Creatinine Ratio 10.5 (10-20) Glucose 185 H (70-99(Fasting)) mg/dl Calcium 9.1 (8.6-10.3) mg/dl Total Bilirubin 0.7 (0.2-1.0) mg/dl AST 17 (13-39) U/L ALT 19 (7-52) U/L Alkaline Phosphatase 73 (34-104) U/L Total Protein 7.5 (6.0-8.3) gm/dl Albumin 4.1 (3.4-5.0) gm/dl Globulin 3.4 (2.5-4.0) gm/dl Albumin/Globulin Ratio 1.2 (0.9-2) Urine Color Yellow Urine Appearance Clear (Clear) Urine pH 6.5 (4.5-7.5) Ur Specific Fleming 1.022 (1.000-1.030) Urine Protein Trace H (Negative) Urine Glucose (UA) Negative (Negative) Urine Ketones Trace H (Negative) Urine Blood Negative (Negative) Urine Nitrite Negative (Negative) Urine Bilirubin Negative (Negative) Urine Urobilinogen Negative (Negative) Ur Leukocyte Esterase Negative (Negative) Urine WBC (Auto) 0-5 (0-5) /hpf Urine RBC (Auto) 0-2 (0-2) /hpf U Hyaline Cast (Auto) 0-2 (0-2) /lpf U Epithel Cells (Auto) 0-2 (0-2) /hpf Urine Bacteria (Auto) None Seen (None Seen) Administered Medications Metronidazole (Flagyl) 500 mg in 100 mls @ 100 mls/hr IV Q8H [facility]; Protocol Stop: 01/21/24 14:59 Last Admin: 01/14/24 16:00 Dose: 100 mls/hr Documented By: COLLINS Sodium Chloride (Nss) 1,000 mls @ 80 mls/hr IV .[id number] [facility] Stop: 01/15/24 14:29 Last Admin: 01/14/24 14:49 Dose: 80 mls/hr Documented By: JANET Discontinued Medications Ceftriaxone Sodium (Rocephin) 2,000 mg in 50 mls @ 100 mls/hr IV NOW STA Stop: 01/14/24 10:44 Last Infusion: 01/14/24 12:23 Dose: Infused Documented By: Admin: 01/14/24 10:48 Dose: 100 mls/hr Documented By: LOYDA Ioversol (Optiray 320 100ml) 94 ml IV ONCE ONE Stop: 01/14/24 12:12 Last Admin: 01/14/24 12:11 Dose: 94 ml Documented By: SHAQK Imaging Data Radiologist's Impression: Pelvis CT 01/14/24 10:14 CT pelvis w/IV con only HISTORY: 58 years-old Male scotal abscess acute pelvic pain with scrotal abscess COMPARISON: Ultrasound 03/20/2019, CT abdomen and pelvis 03/15/2019 TECHNIQUE: Multiple axial CT images of the pelvis were obtained with IV contrast. A dose lowering technique was used consistent with the principals of TUNG. FINDINGS: The imaged intrapelvic structures demonstrate no acute abnormality. Mild prostatomegaly. Decompressed bladder with wall thickening. Colonic diverticulosis without acute diverticulitis. No ascites or mesenteric inflammation. Tiny fat filled umbilical hernia. Borderline enlarged inguinal chain lymph nodes measure up to 11 mm on the left. Peripheral enhancing left scrotal collection measures 4.6 x 6.9 x 2.4 cm with peripheral subcutaneous edema and skin thickening with inflammation extending towards the left base of the penis on image 395 series 3 and 1-2:00 perianal tissues on image 3B2 series 3. Possible associated perianal fistula. No deep tissue air to suggest necrotizing fasciitis. No supralevator extension. No acute osseous abnormality. IMPRESSION: 1. 6.9 cm left-sided scrotal abscess with inflammation extending towards the left base of the penis and 1-2:00 perianal tissues with possible associated perianal fistula. 2. No deep tissue air identified to suggest fasciitis. 3. No supralevator or intrapelvic extension. 4. Colonic diverticulosis. 5. Mild inguinal lymphadenopathy is likely reactive. ACT 112: Negative or not required by law. The above report was generated using voice recognition software. It may contain grammatical, syntax or spelling errors. Electronically signed by: Sergio Nicholas M.D. 01/14/2024 12:40 PM Discharge Plan Visit Data Chief Complaint: Swelling/Edema to Extremity Stated Complaint: PERONEAL CYST, SWELLING OF GENITALS AND SCROTUM ED Provider: Lazaro Sood Discharge Problem: Scrotal abscess, Leukocytosis, Scrotal pain Patient Disposition: Admitted As Inpatient Condition: Fair Discharge Instructions Interventions: ED Discharge Assessment Last Done: 01/14/24 15:10 Discharge Problem: Leukocytosis Qualifiers: Leukocytosis type: unspecified Qualified Code(s): D72.829 - Elevated white blood cell count, unspecified
[2024-01-14 10:48] LABS: Basophils # (auto) 0.06 K/uL (0.00-0.20); Basophils % (auto) 0.4 %; Eosinophils # (auto) 0.05 K/uL (0.00-0.50); Eosinophils % (auto) 0.3 %; Hemoglobin 14.1 g/dl (14.0-18.0); Immature Granulocytes # (auto) 0.09 K/uL (0.01-0.20); Immature Granulocytes % (auto) 0.6 %; Lymphocytes # (auto) 1.61 K/uL (1.20-3.40); Lymphocytes % (auto) 11.1 %; Mean Corpuscular Hemoglobin 29.1 pg (25.0-34.0); Mean Corpuscular Hgb Conc 33.6 g/dL (32.0-36.0); Mean Corpuscular Volume 86.6 fL (80.0-100.0); Mean Platelet Volume 10.3 fL (9.4-12.4); Monocytes # (auto) 1.08 K/uL (0.11-0.59); Monocytes % (auto) 7.5 %; Neutrophils % (auto) 80.1 %; Platelet Count 250 K/uL (130-400); RDW Standard Deviation 40.9 fL (36.4-46.3); Red Blood Count 4.85 M/uL (4.70-6.10); White Blood Count 14.49 K/ul (4.8-10.8)
[2024-01-14] MEDS: cefTRIAXone SODIUM 2,000 MG/50 ML BAG IV STA (10:48)
[2024-01-14 10:49] LABS: Appearance Urine Clear (Clear); Bacteria Urine Automated None Seen (None Seen); Bilirubin Urine Negative (Negative); Blood Urine Negative (Negative); Cast Urine Automated 0-2 /lpf (0-2); Color Urine Yellow; Epithelial Cell Urine Auto 0-2 /hpf (0-2); Glucose Urine UA Negative (Negative); Ketones Urine Trace (Negative); Leukocyte Esterase Urine Negative (Negative); Nitrite Urine Negative (Negative); Protein Urine Trace (Negative); RBC Urine Automated 0-2 /hpf (0-2); Specific Gravity Urine 1.022 (1.000-1.030); Urobilinogen Urine Negative (Negative); WBC Urine Automated 0-5 /hpf (0-5); pH Urine 6.5 (4.5-7.5)
[2024-01-14 11:01] LABS: Albumin Globulin Ratio 1.2 (0.9-2); Albumin Level 4.1 gm/dl (3.4-5.0); BUN Creatinine Ratio 10.5 (10-20); Bilirubin,Total 0.7 mg/dl (0.2-1.0); Calcium 9.1 mg/dl (8.6-10.3); Creatinine Clr Calc Pharmacy 103.1 ml/min; Globulin 3.4 gm/dl (2.5-4.0); Potassium 4.4 mmol/L (3.5-5.1); Total Protein 7.5 gm/dl (6.0-8.3)
[2024-01-14] MEDS: OPTIRAY 320 100ml IV ONE (12:11)
--- NOTE | 2024-01-14 12:42 | CT Scan Report ---
CT pelvis w/IV con only HISTORY: 58 years-old Male scotal abscess acute pelvic pain with scrotal abscess COMPARISON: Ultrasound 03/20/2019, CT abdomen and pelvis 03/15/2019 TECHNIQUE: Multiple axial CT images of the pelvis were obtained with IV contrast. A dose lowering luis armando hnique was used consistent with the principals of TUNG. FINDINGS: The imaged intrapelvic structures demonstrate no acute abnormality. Mild prostatomegaly. Decompressed bladder with wall thickening. Colonic diverticulosis without acute diverticulitis. No ascites or mes enteric inflammation. Tiny fat filled umbilical hernia. Borderline enlarged inguinal chain lymph node s measure up to 11 mm on the left. Peripheral enhancing left scrotal collection measures 4.6 x 6.9 x 2.4 cm with peripheral subcutaneous edema and skin thickening with inflammation extending towards the left base of the penis on image 395 series 3 and 1-2:00 perianal tissues on image 3B2 series 3. Poss ible associated perianal fistula. No deep tissue air to suggest necrotizing fasciitis. No supralevato r extension. No acute osseous abnormality. IMPRESSION: 1. 6.9 cm left-sided scrotal abscess with inflammation extending towards the left base of the penis a nd 1-2:00 perianal tissues with possible associated perianal fistula. 2. No deep tissue air identified to suggest fasciitis. 3. No supralevator or intrapelvic extension. 4. Colonic diverticulosis. 5. Mild inguinal lymphadenopathy is likely reactive. ACT 112: Negative or not required by law. The above report was generated using voice recognition software. It may contain grammatical, syntax o r spelling errors. Electronically signed by: Sergio Nicholas M.D. 01/14/2024 12:40 PM
--- NOTE | 2024-01-14 13:05 | Urology Consultation ---
Date of Consultation January 14, 2024 Assessment & Plan (1) Perineal abscess: (2) Scrotal abscess: (3) Cellulitis of scrotum: (4) Fatty liver: (5) Undescended testicle: Plan Patient with worsening pain in the groin and scrotum developed into cellulitis erythema and bother. Patient has history of perineal abscess treated in 2019 and May and then again in August due to reoccurrence. Patient had similar symptoms at that time. Presented to the ER after increasing pain discomfort and bother radiating and increasing in severity with increasing swelling and edema. Patient with significant cellulitis. Imaging was completed by the ER. Patient independently assessed, examined, interviewed, and evaluated. Agree with note as above. Patient's vitals and labs were all reviewed. Hemoglobin 14.1. White cells 14.49. Creatinine 1.05. All other labs were reviewed please see HPI plan section or medical records for full report. Pertinent values in the HPI and plan section. Patient having significant hypertension with blood pressure 176/103. Pulse is elevated 96. No significant fever while in the ER most recent temperature was 36.3. Satting 97% on room air. Imaging was reviewed interpreted by myself. CT scan was thoroughly reviewed. Large fluid collection in the scrotum/perineal area likely abscess. Reports from radiology due to state possible concern for fistula. All labs and vitals were reviewed pertinent values in the HPI and plan section. Imaging was reviewed interpreted by myself. Agree with read. Vitals were reviewed. Discussed findings extensively with patient and family. Reviewed with nurse practitioner as well as consulting physicians/team. Patient's complicated medical and surgical history was reviewed and summarized above. Patient's surgical, medical, social, and family history were all reviewed with pertinent values as above. Discussed patient's current diagnosis as well as concerns and issues. Reviewed different options moving forward. Discussed potential risks and benefits as well as possible options and concerns. Reviewed potential surgical options and interventions. Discussed potential issues and concerns related to intervention. Risk and benefits were discussed extensively with patient and any available family. Discussed potential risks related to anesthesia. Discussed risks of bleeding infection and injury. Patient had breakfast this morning. Had solid food around 7 AM. Patient is currently stable without signs of severe sepsis. No significant sign for worsening fasciitis necrosis or development of foreign years. Large scrotal abscess. Did review extensively options for intervention. Will selwyn bee need close monitoring with admission with IV antibiotics. Will likely need supportive care. Reviewed options for management of scrotal/perineal abscess. Will likely need incision and drainage possible washout possible excisional debridement. Reviewed options moving forward. Discussed bedside versus an OR procedure. As patient is not n.p.o. will need to maintain n.p.o. status with possible intervention once cleared from an anesthesia standpoint. Patient complicated medical and surgical history is reviewed and summarized above all imaging was reviewed interpreted by myself. Will plan to have patient monitored with n.p.o. with possible plan moving forward with surgical management of scrotal/perineal abscess. History of Present Illness History of Present Illness New consultation for patient with significant scrotal swelling possible infection and and increasing pain discomfort, and ill feelings. Patient developed sudden onset of pain into the scrotum going down and radiating into groin and back in waves comes and goes. Can be severe at times. Patient had been on a long flight and had sat in a chair and felt increasing discomfort in the groin/pelvic region. Had increasing scrotal swelling with edematous changes. Discussed and reviewed patient's family history for any history of issues, infections, and disease. Also, discussed patient's medical/surgery history especially related to any history of urinary issues or stone disease. Patient previously had scrotal abscess treated in 2019 and May and in August due to reoccurrence of abscess. Patient was evaluated by the ER. Found on imaging to have a large scrotal abscess with surrounding inflammation. No signs of active fasciitis necrosis or gas formation within the abscess. Patient is going to need to be admitted and and will likely need observation with broad spectrum IV antibiotics. Allergies Allergy/AdvReac Type Severity Reaction Status Date / Time Penicillins Allergy Unknown Rash Verified 01/14/24 13:03 Home Medications Medication Instructions Recorded Confirmed Type ibuprofen 800 mg tablet 600 mg PO Q6H PRN pain 05/13/19 01/14/24 History atorvastatin 20 mg tablet 20 mg PO DAILY 12/16/20 01/14/24 History lactobacillus combination no.4 3 1 cell PO DAILY 01/14/24 01/14/24 History billion cell capsule (Probiotic) Patient History Medical History (Updated 01/14/24 @ 13:04 by Doc Beaulieu, ) H/O drainage of abscess PERINEAL 05/14/2019 [facility] Compressed vertebrae HX OF L2-3 Fatty liver Epididymitis Dyslipidemia Surgical History Status post scrotal varicocelectomy Undescended testicle HX repair as a child Family History Mother Dyslipidemia Family history of breast cancer Father Prostate cancer Sister Family history of breast cancer Social History Smoking Status: Never smoker Second Hand Exposure: Yes ( A CHILD); Do You Dip or Chew Tobacco: No; Hx Alcohol Use: Yes Alcohol type: wine Alcohol Intake Frequency Comment: Weekends Hx Substance Use: No Preferred Language: Turkish Communication Ability: Effective Manager Home Improvement Required: No Beliefs That Will Affect Care: None Current Living Situation: Spouse and Family Feels Safe at Home: Yes Assistive Devices: Glasses Review of Systems Review of Systems: All systems reviewed & are unremarkable except as noted in HPI & below Physical Exam Physical Exam: General: Alert and oriented x 3 in no acute distress. HEENT: Normocephalic Atraumatic. Inspection normal. Cranial Nerves 2-12 Grossly intact. Nares are clear. Neck is supple. Normal inspection of face. Normal inspection of neck. Neurologic: No deficits on inspection. Baseline for motor function and sensory. Psychologic: Normal affect. Respiratory: Nonlabored. No use of accessory muscles. No tachypnea or dyspnea. Cardiovascular: No tachycardia Skin: Victor and Dry. No rashes or visible lesions. Extremities: Moving without issues. No motor deficits on inspection Lymphatics: No edema Abdomen: Soft Non-distended. No rebound or guarding. : Large scrotal/perineal abscess with induration and edematous changes with erythema. No sign of necrosis. Results & Data Vital Signs (Past 12 Hours) Vital Signs Temp Pulse Pulse Resp BP BP Pulse Ox 01/14/24 10:27 96 H 20 176/103 H 97 01/14/24 09:54 36.3 C L 108 H 20 173/109 H 96 O2 Del Method 01/14/24 10:27 Room Air 01/14/24 09:54 Room Air PG Care Time/CCT Total # of Minutes Spent Total Time Spent with Patient: Total time spent is greater than 50% in coordination of care (as documented) at patient's floor/unit and/or counseling patient: Coding Level of Care Code 64077 OP VST NEW HI 60 MIN Diagnoses Perineal abscess L02.215 Scrotal abscess N49.2 Cellulitis of scrotum N49.2 Fatty liver K76.0 Undescended testicle Q53.9
--- NOTE | 2024-01-14 13:53 | History & Physical Report ---
Date of Service January 14, 2024 Assessment & Plan (1) Sepsis: (2) Scrotal abscess: (3) Cellulitis of scrotum: Plan This is a 58 yr old M who has a significant PMH of HLD, pre diabetes and prior hx of perineal abscess in 2019 who presents to ED 2/2 swelling and pain to L scrotum x 1 week. Sepsis Scrotal Abscess Cellulitis of scrotum admit to [facility] tele 2/2 sepsis -he meets criteria 2/2 tachycardia, leukocytosis, BP stable received IV Rocephin 2g in ED - will broaden coverage add lactic acid, EKG, CXR for pre op clearance Empiric IV cefepime, dapto and flagyl for now Urology consulted and on board Plan for surgical intervention today Prn pain control with IV tylenol and prn Oxy repeat labs in am. maintenance fluids while NPO and tachycardic - d/c as soon as able given IVF shortage he is medically cleared for surgery if/when indicated HLD: chronic, stable, hold statin in setting of dapto PreDM/Hyperglycemia: A1C 6.4 in july, repeat in a.m., will hold off on any insulin coverage for now given NPO status, await A1C in a.m DVT ppx: SCDS for now, recommend adding chemical ppx post operatively when able FULL CODE PCP: Eliceo Oneill Dispo: admit to [facility], downgrade when no longer meeting sepsis criteria Pt was seen and examined in collaboration with Dr. French, please see addendum I spent a total of 64 minutes reviewing notes, outpatient records, labs, medication, coordinating, documenting and providing care for this patient excluding time spent in the performance of separately billed services. History of Present Illness Chief Complaint: Swelling and pain to scrotum x 1 week. Primary Care Provider: Eliceo Oneill, DO This is a 58 yr old M who has a significant PMH of HLD, pre diabetes and prior hx of perineal abscess in 2019 who presents to ED 2/2 swelling and pain to L scrotum x 1 week. He reports back in 2019 having a similar episode that required 2 surgeries that left and open wound. The wound finally healed a year ago. He follows with [facility] urology. He reports ever since that surgery if he sits for prolonged period of time it becomes painful. He was flying last week and had a 5hr lay over in [place]. This is where he started noticing increased pain and discomfort. When he returned home the pain continued and he developed swelling to his scrotum. He tried OTC ibuprofen and ice, but when he woke up this morning his swelling was even worse so he came to ED. He denies any f/c/s, chest pain, sob, n/v/d, abd pain, dysuria, increased urg/freq with urination, change in stool or discharge. In ED pt met sepsis criteria with leukocytosis and tachycardia. CT a/p revealed . 6.9 cm left-sided scrotal abscess with inflammation extending towards the left base of the penis and 1-2:00 perianal tissues with possible associated perianal fistula. 2. No deep tissue air identified to suggest fasciitis. He received IV rocephin while in ED. Urology was consulted. He reports being able to ambulate 1 flight of stairs w/o cardiovascular sx. He also denies any previous rxn to anesthesia. Allergies Allergy/AdvReac Type Severity Reaction Status Date / Time Penicillins Allergy Unknown Rash Verified 01/14/24 13:03 Home Medications Medication Instructions Recorded Confirmed Type ibuprofen 800 mg tablet 600 mg PO Q6H PRN pain 05/13/19 01/14/24 History atorvastatin 20 mg tablet 20 mg PO DAILY 12/16/20 01/14/24 History lactobacillus combination no.4 3 1 cell PO DAILY 01/14/24 01/14/24 History billion cell capsule (Probiotic) Past Med/Surg History Problem List (Updated 01/14/24 @ 13:52 by Xena Sequeira PA-C) Sepsis Scrotal abscess Cellulitis of scrotum (Acute) DVT prophylaxis Encounter for pre-operative examination Perineal abscess Prostate cancer screening Medical History (Updated 01/14/24 @ 13:52 by Xena Sequeira PA-C) H/O drainage of abscess PERINEAL 05/14/2019 [facility] Compressed vertebrae HX OF L2-3 Fatty liver Epididymitis Dyslipidemia Surgical History Status post scrotal varicocelectomy Undescended testicle HX repair as a child Family History Mother Dyslipidemia Family history of breast cancer Father Prostate cancer Sister Family history of breast cancer Social History Smoking Status: Never smoker Second Hand Exposure: Yes ( A CHILD); Do You Dip or Chew Tobacco: No; Hx Alcohol Use: Yes Alcohol type: wine Alcohol Intake Frequency Comment: Weekends Hx Substance Use: No Preferred Language: [place] Communication Ability: Effective 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: No Beliefs That Will Affect Care: None Current Living Situation: Spouse and Family Feels Safe at Home: Yes Assistive Devices: Glasses Review of Systems Review of Systems: All systems reviewed & are unremarkable except as noted in HPI & below Physical Exam Physical Exam: Constitutional: WD/WN, vitals as above, NAD, sitting up in bed, pleasant, conversing easily Head: Normocephalic, Atraumatic Eyes: PERRL, conjunctivae normal, anicteric sclerae ENMT: external ear and nose normal, oropharynx normal Neck: trachea midline, no thyromegaly normal visual inspection Respiratory: normal respiratory effort, lungs clear to auscultation, no wheeze, rales, rhonchi. Normal insp/exp effort, no accessory muscle use Cardiovascular: RRR, no murmur, no edema Vessels: no JVD or carotid bruit Chest: normal inspection of chest Abdomen: normal bowel sounds, soft, nontender, no hepatosplenomegaly Musculoskeletal: no cyanosis or clubbing, extremities motor strength 5/5 Skin: no rashes, warm and dry normal turgor Neurologic: PERRL, EOMI, accommodation nl, no face palsy, no dysarthria CN's II-XI intact bilaterally and moves all extremities Psychiatric: A+Ox3, euthymic affect Lymphatic: no cervical or axillary lymphadenopathy : +scrotal erythema, and edema L > R with induration, no evidence of necrosis Results & Data Results & Data Vital Signs (Past 12 Hours) Vital Signs Temp Pulse Pulse Resp BP BP Pulse Ox 01/14/24 13:04 96 H 18 145/99 H 98 01/14/24 10:27 96 H 20 176/103 H 97 01/14/24 09:54 36.3 C L 108 H 20 173/109 H 96 O2 Del Method 01/14/24 13:04 Room Air 01/14/24 10:27 Room Air 01/14/24 09:54 Room Air Laboratory Results I have independently reviewed and interpreted patient's admitting labs including CBC, CMP, UA Diagnostic Findings Pelvis CT 01/14/24 10:14 CT pelvis w/IV con only HISTORY: 58 years-old Male scotal abscess acute pelvic pain with scrotal abscess COMPARISON: Ultrasound 03/20/2019, CT abdomen and pelvis 03/15/2019 TECHNIQUE: Multiple axial CT images of the pelvis were obtained with IV contrast. A dose lowering technique was used consistent with the principals of TUNG. FINDINGS: The imaged intrapelvic structures demonstrate no acute abnormality. Mild prostatomegaly. Decompressed bladder with wall thickening. Colonic diverticulosis without acute diverticulitis. No ascites or mesenteric inflammation. Tiny fat filled umbilical hernia. Borderline enlarged inguinal chain lymph nodes measure up to 11 mm on the left. Peripheral enhancing left scrotal collection measures 4.6 x 6.9 x 2.4 cm with peripheral subcutaneous edema and skin thickening with inflammation extending towards the left base of the penis on image 395 series 3 and 1-2:00 perianal tissues on image 3B2 series 3. Possible associated perianal fistula. No deep tissue air to suggest necrotizing fasciitis. No supralevator extension. No acute osseous abnormality. IMPRESSION: 1. 6.9 cm left-sided scrotal abscess with inflammation extending towards the left base of the penis and 1-2:00 perianal tissues with possible associated perianal fistula. 2. No deep tissue air identified to suggest fasciitis. 3. No supralevator or intrapelvic extension. 4. Colonic diverticulosis. 5. Mild inguinal lymphadenopathy is likely reactive. ACT 112: Negative or not required by law. The above report was generated using voice recognition software. It may contain grammatical, syntax or spelling errors. Electronically signed by: Sergio Nicholas M.D. 01/14/2024 12:40 PM Medications Administered Medication List Discontinued Medications Ceftriaxone Sodium (Rocephin) 2,000 mg in 50 mls @ 100 mls/hr IV NOW STA Stop: 01/14/24 10:44 Last Infusion: 01/14/24 12:23 Dose: Infused Documented By: Admin: 01/14/24 10:48 Dose: 100 mls/hr Documented By: LOYDA Ioversol (Optiray 320 100ml) 94 ml IV ONCE ONE Stop: 01/14/24 12:12 Last Admin: 01/14/24 12:11 Dose: 94 ml Documented By: EDK COVID-19 Results Results COVID-19 Adm Lab Results: RBC 4.85 M/uL (4.70-6.10) 01/14/24 WBC 14.49 K/ul (4.8-10.8) H 01/14/24 Hgb 14.1 g/dl (14.0-18.0) 01/14/24 Hct 42.0 % (42.0-52.0) 01/14/24 Plt Count 250 K/uL (130-400) 01/14/24 Neutrophils (%) (Auto) 80.1 % 01/14/24 Lymphocytes (%) (Auto) 11.1 % 01/14/24 Monocytes # (Auto) 1.08 K/uL (0.11-0.59) H 01/14/24 Eosinophils # (Auto) 0.05 K/uL (0.00-0.50) 01/14/24 Immature Granulocyte % (Auto) 0.6 % 01/14/24 Neutrophils # (Auto) 11.60 K/uL (1.40-6.50) H 01/14/24 Lymphocytes # (Auto) 1.61 K/uL (1.20-3.40) 01/14/24 Monocytes # (Auto) 1.08 K/uL (0.11-0.59) H 01/14/24 Eosinophils # (Auto) 0.05 K/uL (0.00-0.50) 01/14/24 Basophils # (Auto) 0.06 K/uL (0.00-0.20) 01/14/24 Immature Granulocyte # (Auto) 0.09 K/uL (0.01-0.20) 4 Na 132 mmol/L (136-145) L 01/14/24 K 4.4 mmol/L (3.5-5.1) 01/14/24 Cl 102 mmol/L (98-107) 01/14/24 CO2 21 mmol/L (21-32) 01/14/24 Anion Gap 9 (3-11) 01/14/24 BUN 11 mg/dl (6-23) 01/14/24 Creatinine 1.05 mg/dl (0.6-1.4) 01/14/24 BUN/Creatinine Ratio 10.5 (10-20) 01/14/24 Glucose Level 185 mg/dl (70-99(Fasting)) H 01/14/24 Ca 9.1 mg/dl (8.6-10.3) 01/14/24 Total Bilirubin 0.7 mg/dl (0.2-1.0) 01/14/24 AST/SGOT 17 U/L (13-39) 01/14/24 ALT/SGPT 19 U/L (7-52) 01/14/24 Alkaline Phosphatase 73 U/L (34-104) 01/14/24 Total Protein 7.5 gm/dl (6.0-8.3) 01/14/24 Albumin 4.1 gm/dl (3.4-5.0) 01/14/24 Globulin 3.4 gm/dl (2.5-4.0) 01/14/24 Albumin/Globulin Ratio 1.2 (0.9-2) 01/14/24 Chest X-Ray 01/14/24 Code Status & VTE Plan Code Status FULL CODE VTE Prophylaxis Plan VTE Prophylaxis will be ordered: Yes Supervising Physician Co-Signing Physician Notes Attending Addendum: Case reviewed with the advanced practitioner. I have personally performed a history and physical examination on the patient. I have reviewed the advanced practitioner's documentation on the date of service referenced in note, and I agree with, and take responsibility for the plan of care. please refer to her notes for full details patient seen and examined, records reviewed by myself as well on exam, patient seen resting in bed, not in distress reports 6/10 pain over the scrotal area no problems with urination or bowel movement no other symptoms VS noted and reviewed oriented x3 , not in distress, speaks in sentences with no effort nor accessory muscle use normal rate, regular rhythm, no murmurs clear breath sounds bilaterally non distended, soft, nontender scrotum (+) moderate edema, erythema, warmth, tenderness no bipedal edema, erythema, warmth no neuro deficits all labs, imaging noted and reviewed ASSESSMENT AND PLAN> POSSIBLE SEPSIS SECONDARY TO SCROTAL ABSCESS POSSIBLE PERIANAL FISTULA? 2nd episode blood cultures ordered IV Dapto + Cefepime + Flagyl IV NSS for I&D tomorrow per Urologist PREDIABETES check a1c to r/o DM contributing to abscesss other diagnoses and plan of care as per advanced practitioner's notes Timoteo French MD
--- NOTE | 2024-01-14 14:05 | XRay Report ---
XR chest 1V portable HISTORY: 58 years-old Male pre op preoperative exam COMPARISON: 05/03/2019 TECHNIQUE: AP view the chest FINDINGS: Cardiac silhouette is normal in size. No pneumothorax, pleural effusion, airspace consolidation or pu lmonary edema. Bones appear grossly intact. Small calcified granuloma the right upper lung. IMPRESSION: No acute process. ACT 112: Negative or not required by law. The above report was generated using voice recognition software. It may contain grammatical, syntax o r spelling errors. Electronically signed by: Sergio Nicholas M.D. 01/14/2024 2:03 PM
[2024-01-14] MEDS: SODIUM CHLORIDE 0.9% 1,000 ML IV SCH (14:49)
[2024-01-14] MEDS ORDERED: ACETAMINOPHEN 1,000 MG/100 ML VIAL IV PRN (15:30)
[2024-01-14] MEDS ORDERED: ONDANSETRON INJ 2 MG/ML 2 ML VIAL IV PRN (15:30)
[2024-01-14] MEDS ORDERED: POLYETHYLENE (MIRALAX) 17 GM PACK PO PRN (15:30)
[2024-01-14] MEDS ORDERED: oxyCODONE HCL IR 5 MG TAB (IMMEDIATE RELEASE) PO PRN (15:30)
[2024-01-14] MEDS: metroNIDAZOLE 500 MG/100 ML BAG IV SCH (16:00)
[2024-01-14] MEDS: DAPTOmycin 575 MG in SYRINGE 0 ML IV SCH (16:54)
[2024-01-14] MEDS: CEFEPIME 2000MG 2,000 MG/20 ML SYR IV SCH (16:56)
--- NOTE | 2024-01-14 17:43 | Electrocardiogram Report ---
Test Reason : Blood Pressure : */* mmHG Vent. Rate : 89 BPM Atrial Rate : 89 BPM P-R Int : 170 ms QRS Dur : 86 ms QT Int : 388 ms P-R-T Axes : 52 -3 48 degrees QTcB Int : 472 ms Normal sinus rhythm Minimal voltage criteria for LVH, may be normal variant ( R in aVL ) Borderline ECG When compared with ECG of 03-May-2019 08:47, No significant change was found Confirmed by Swati Linder ([id number]) on 01/14/2024 5:42:58 PM Referred By: REFERRED SELF Confirmed By: Swati Linder
[2024-01-14] MEDS: ACETAMINOPHEN 325 MG TAB PO PRN (22:33)
[2024-01-15 07:14] LABS: Basophils # (auto) 0.05 K/uL (0.00-0.20); Basophils % (auto) 0.4 %; Eosinophils # (auto) 0.08 K/uL (0.00-0.50); Eosinophils % (auto) 0.6 %; Hematocrit (blood only) 41.3 % (42.0-52.0); Hemoglobin 13.9 g/dl (14.0-18.0); Immature Granulocytes # (auto) 0.07 K/uL (0.01-0.20); Immature Granulocytes % (auto) 0.5 %; Lymphocytes # (auto) 2.05 K/uL (1.20-3.40); Lymphocytes % (auto) 15.2 %; Mean Corpuscular Hemoglobin 29.3 pg (25.0-34.0); Mean Corpuscular Hgb Conc 33.7 g/dL (32.0-36.0); Mean Corpuscular Volume 87.1 fL (80.0-100.0); Monocytes # (auto) 1.41 K/uL (0.11-0.59); Monocytes % (auto) 10.4 %; Neutrophils # (auto) 9.87 K/uL (1.40-6.50); Neutrophils % (auto) 72.9 %; Platelet Count 251 K/uL (130-400); RDW Standard Deviation 41.4 fL (36.4-46.3); Red Blood Count 4.74 M/uL (4.70-6.10); White Blood Count 13.53 K/ul (4.8-10.8)
[2024-01-15 07:25] LABS: Albumin Globulin Ratio 1.2 (0.9-2); Albumin Level 3.9 gm/dl (3.4-5.0); BUN Creatinine Ratio 9.7 (10-20); Bilirubin,Total 0.7 mg/dl (0.2-1.0); Creatinine Clr Calc Pharmacy 94.5 ml/min; Globulin 3.2 gm/dl (2.5-4.0); Potassium 4.2 mmol/L (3.5-5.1); Total Protein 7.1 gm/dl (6.0-8.3)
--- NOTE | 2024-01-15 08:24 | Urology Progress Note ---
Date of Service January 15, 2024 Assessment & Plan (1) Scrotal abscess: Plan: Follow-up of scrotal abscess He is afebrile with stable vitals Labs reviewedcreatinine 1.13, WBC improved to 13.53, hemoglobin 13.9 Blood cultures are pending He is on Flagyl, daptomycin, and cefepime Scrotal abscess began to spontaneously drain overnight Discussed recommendation for I&D and washout of scrotal abscesshe is agreeable Proceed to the OR today for left scrotal incision and drainage and washout Risks and benefits of procedure to be reviewed with patient by Dr. Beaulieu Keep NPO for procedure Continue with antibiotics and supportive care per hospital medicine team Will plan to consult wound care nurse for evaluation and management after procedure will follow Attending note: Patient independently assessed, examined, interviewed, and evaluated. Agree with note as above. Patient's vitals and labs were all reviewed. Pertinent values in the HPI and plan section. Imaging was reviewed interpreted by myself. Agree with read. Vitals were reviewed. Discussed findings extensively with patient and family. Reviewed with nurse practitioner as well as consulting physicians/team. Patient's complicated medical and surgical history was reviewed and summarized above. Patient's surgical, medical, social, and family history were all reviewed with pertinent values as above. Discussed patient's current diagnosis as well as concerns and issues. Reviewed different options moving forward. Discussed potential risks and benefits as well as possible options and concerns. Reviewed potential surgical options and interventions. Discussed potential issues and concerns related to intervention. Risk and benefits were discussed extensively with patient and any available family. Discussed potential risks related to anesthesia. Discussed risks of bleeding infection and injury. Risks and benefits discussed at length for procedure. These include bleeding, infection, injury to surrounding tissues or organs, and risks associated with a nesthesia. Patient states understanding and agrees to proceed. Will sign consent and schedule. Plan for incision and drainage of scrotal abscess Admission and Anticipated Discharge Date Admission Date: January 14, 2024 Subjective Patient seen and examined at bedside. No acute issues overnight. Scrotum began to spontaneously drain overnight. His scrotal discomfort is improved after it drained. Denies nausea, vomiting, fever or chills. He is NPO. Review of Systems Constitutional: as per Subjective / HPI Gastrointestinal: as per Subjective / HPI Genitourinary: + as per Subjective / HPI Physical Exam Constitutional: well developed and well nourished; no acute distress Respiratory: normal respiratory effort; no respiratory distress and no labored breathing Gastrointestinal (Abdomen): Inspection/Auscultation: abdomen normal to inspection Musculoskeletal: Head/Neck/Chest: normocephalic Neurologic: moves all extremities and awake Psychiatric: Orientation: alert and oriented x 3 Genitourinary: Large left scrotal/perineal abscess with erythema, edema, and induration. Some sanguinous drainage noted, wound packing currently in place. No crepitus or necrosis. Results & Data Vital Signs (Past 12 Hours) Vital Signs Temp Pulse Pulse Resp BP Pulse Ox O2 Del Method 01/15/24 07:58 37.2 C 81 16 134/80 94 Room Air 01/15/24 07:25 Room Air 01/15/24 04:02 36.5 C 86 16 122/79 94 Room Air 01/14/24 23:26 36.9 C 96 H 16 133/91 94 Room Air 01/14/24 21:58 100 H PG Care Time/CCT Total # of Minutes Spent Total Time Spent with Patient: Total time spent is greater than 50% in coordination of care (as documented) at patient's floor/unit and/or counseling patient: Coding Level of Care Code 61570 SUB INP/OBS CARE 2/35MIN Diagnoses Scrotal abscess N49.2
[2024-01-15 08:29] LABS: Estimated Average Glucose 134 mg/dl; Hemoglobin A1C 6.3 % (4.5-5.6)
[2024-01-15] MEDS: ADVANCED PROBIOTIC 625 MG CAPSULE PO SCH (09:32)
[2024-01-15] MEDS ORDERED: fentaNYL citrate PF 100 MCG/2 ML VIAL ONE ×2 (11:43→12:32)
[2024-01-15] MEDS ORDERED: MIDAZOLAM HCL 1 MG/ML 2ML VIAL ONE (11:44)
--- NOTE | 2024-01-15 11:45 | Anesthesiology Consultation ---
Date of Service January 15, 2024 Assessment & Plan (1) Encounter for pre-operative examination: Chart Review Chart Review: Acceptable Risk for Surgery and Patient NOT seen in Pre Admission Testing Consults Requested none History Surgery Operation Date: 01/15/24 07:05 Proposed Procedures p Left Scrotal Incision and Drainage with Washout - Doc Beaulieu DO Height/Weight Height: 6 ft 1 in Weight: 111.8 kg Allergies Allergy/AdvReac Type Severity Reaction Status Date / Time Penicillins Allergy Unknown Rash Verified 01/14/24 13:03 Medications Home Medications Medication Instructions Recorded Confirmed Last Taken ibuprofen 800 mg tablet 600 mg PO Q6H PRN pain 05/13/19 01/14/24 01/13/24 atorvastatin 20 mg tablet 20 mg PO DAILY 12/16/20 01/14/24 01/13/24 lactobacillus combination no.4 3 1 cell PO DAILY 01/14/24 01/14/24 01/13/24 billion cell capsule (Probiotic) Active Medications Generic Name Dose Route Start Last Admin Trade Name Freq PRN Reason Stop Dose Admin Acetaminophen 650 mg 01/14/24 15:30 01/14/24 22:33 Acetaminophen 325 Mg Tab PO 02/13/24 15:29 650 mg Q4H PRN Administration Pain or Fever Metronidazole 500 mg in 100 mls @ 100 mls/hr 01/14/24 15:00 01/15/24 08:16 Flagyl IV 01/21/24 14:59 Infused Q8H CINDY Infusion Protocol Sodium Chloride 1,000 mls @ 80 mls/hr 01/14/24 14:30 01/15/24 03:30 Nss IV 01/15/24 14:29 80 mls/hr .[id number] CINDY Administration Daptomycin 575 mg/ Syringe 11.5 mls @ 5.75 mls/min 01/14/24 15:30 01/14/24 16:54 IV 01/21/24 15:29 5.75 mls/min Q24H CINDY Administration Protocol Cefepime HCl 2,000 mg in 20 mls @ 5 mls/min 01/14/24 16:15 01/15/24 09:32 Maxipime 2000mg IV 01/21/24 16:14 5 mls/min Q8H CINDY Administration Protocol Lactobacillus Acidophilus 625 mg 01/15/24 09:00 01/15/24 09:32 Advanced Probiotic 625 Mg Capsule PO 02/14/24 08:59 625 mg DAILY CINDY Administration NPO Date Last Intake of Fluids: 01/14/24 Time Last Intake of Fluids: 23:00 Date Last Intake of Solids: 01/14/24 Time Last Intake of Solids: 17:30 Past Medical History Medical History H/O drainage of abscess PERINEAL 05/14/2019 [facility] Compressed vertebrae HX OF L2-3 Fatty liver Epididymitis Dyslipidemia Past Family History Family History Mother Dyslipidemia Family history of breast cancer Father Prostate cancer Sister Family history of breast cancer Past Surgical History Surgical History Status post scrotal varicocelectomy Undescended testicle HX repair as a child Social History Smoking Status: Former smoker tobacco type: cigarettes Do You Dip or Chew Tobacco: No Hx Alcohol Use: Yes Alcohol type: wine alcohol intake frequency: 0-2 drinks per day Alcohol Intake Frequency Comment: 5-6 glasses per week Hx Substance Use: No substance use type: does not use Physical Exam Vital Signs Last Vital Signs Temp 36.4 C L 01/15/24 11:04 Pulse 85 01/15/24 11:04 Resp 18 01/15/24 11:04 BP 148/94 H 01/15/24 11:04 Pulse Ox 97 01/15/24 11:04 O2 Del Method Room Air 01/15/24 11:04 Testing Laboratory Results 01/15/24 06:29 01/15/24 06:29 Hemoglobin A1c 6.3 % (4.5-5.6) H 01/15/24 06:29 Urine Color Yellow 01/14/24 10:27 Urine Appearance Clear (Clear) 01/14/24 10:27 Urine pH 6.5 (4.5-7.5) 01/14/24 10:27 Ur Specific [place] 1.022 (1.000-1.030) 01/14/24 10:27 Urine Protein Trace (Negative) H 01/14/24 10:27 Urine Glucose (UA) Negative (Negative) 01/14/24 10:27 Urine Ketones Trace (Negative) H 01/14/24 10:27 Urine Nitrite Negative (Negative) 01/14/24 10:27 Ur Leukocyte Esterase Negative (Negative) 01/14/24 10:27 Urine WBC (Auto) 0-5 /hpf (0-5) 01/14/24 10:27 Urine RBC (Auto) 0-2 /hpf (0-2) 01/14/24 10:27 U Hyaline Cast (Auto) 0-2 /lpf (0-2) 01/14/24 10:27 U Epithel Cells (Auto) 0-2 /hpf (0-2) 01/14/24 10:27 Urine Bacteria (Auto) None Seen (None Seen) 01/14/24 10:27 Electrocardiogram Date: 01/14/24 DICTATED BY: Swati Linder, DO Test Reason : Blood Pressure : */* mmHG Vent. Rate : 89 BPM Atrial Rate : 89 BPM P-R Int : 170 ms QRS Dur : 86 ms QT Int : 388 ms P-R-T Axes : 52 -3 48 degrees QTcB Int : 472 ms Normal sinus rhythm Minimal voltage criteria for LVH, may be normal variant ( R in aVL ) Borderline ECG When compared with ECG of 03-May-2019 08:47, No significant change was found Confirmed by Swati Linder (Shayna) on 01/14/2024 5:42:58 PM Chest X-Ray Date: 01/14/24 XR chest 1V portable HISTORY: 58 years-old Male pre op preoperative exam COMPARISON: 05/03/2019 TECHNIQUE: AP view the chest FINDINGS: Cardiac silhouette is normal in size. No pneumothorax, pleural effusion, airspace consolidation or pulmonary edema. Bones appear grossly intact. Small calcified granuloma the right upper lung. IMPRESSION: No acute process.
[2024-01-15] MEDS ORDERED: LIDOCAINE 2% 2 ML VIAL/AMP(20MG/ML) INFIL ONE (11:50)
[2024-01-15] MEDS ORDERED: ONDANSETRON INJ 2 MG/ML 2 ML VIAL ONE (11:50)
[2024-01-15] MEDS ORDERED: GLYCOPYRROLATE 0.2 MG/ML VIAL ONE (11:50)
[2024-01-15] MEDS ORDERED: DEXAMETHASONE SOD INJ 4 MG/ML VIAL ONE (11:50)
[2024-01-15] MEDS ORDERED: PROPOFOL IV EMULSION 10 MG/ML 20 ML VIAL IV ONE (11:50)
[2024-01-15] MEDS ORDERED: PROMETHAZINE HCL 6.25 MG in SODIUM CHLORIDE 0.9% 50 ML IV PRN (11:54)
[2024-01-15] MEDS ORDERED: ONDANSETRON INJ 2 MG/ML 2 ML VIAL IV PRN (11:54)
[2024-01-15] MEDS ORDERED: ATROPINE SULFATE 0.1 MG/ML 10ML SYR IV PRN (11:54)
[2024-01-15] MEDS ORDERED: HYDROmorphone INJ 1 MG/ML SYRINGE IV PRN (11:54)
[2024-01-15] MEDS ORDERED: ePHEDrine sulfate 50 MG/ML AMP IV PRN (11:54)
--- NOTE | 2024-01-15 12:37 | Hospitalist Progress Note ---
Date of Service January 15, 2024 Assessment & Plan (1) Sepsis: (2) Scrotal abscess: (3) Cellulitis of scrotum: Plan This is a 58 yr old M who has a significant PMH of HLD, pre diabetes and prior hx of perineal abscess in 2019 who presents to ED 2/2 swelling and pain to L scrotum x 1 week. Sepsis Scrotal Abscess Cellulitis of scrotum Met sepsis criteria with tachycardia/leukocytosis now improving Continue IV cefepime/Dapto/Flagyl Urology consulted and following, plan for I&D in OR today 01/14 Blood cultures pending, consult ID after OR cultures result Hx HLD: Hold statin for now Hx prediabetes: A1c 6.3, monitor daily sugars A total of 45 minutes was spent on chart review/facilitation of plan of care/reviewing diagnostic data/discussion with consultants Full code DVT prophylaxis: SCDs for now, can start Lovenox postop if okay with urology Admission and Anticipated Discharge Date Admission Date: January 14, 2024 Supervising Physician Co-Signing Physician Notes 58-year-old male with PMH of HLD, prediabetes, perineal abscess in 2019 presented to the ED secondary to swelling and pain to left scrotum for 1 week 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 He is being managed for the following: Scrotal abscess, sepsis POA, cellulitis of scrotum: Continue with cefepime/Dapto/Flagyl. Follow-up admitting blood culture, 4 OR today, follow-up operative culture. Consult ID after OR cultures. Get baseline cpk level, pt on dapto. On exam: Scrotal abscess has ruptured, packing present, tenderness improved, erythema better. Rest of the examination as above. Time spent: 20 minutes I have seen and examined the patient and have discussed the case with the provider above. I agree with the assessment and plan as stated. Subjective Patient seen and examined at bedside. No acute issues overnight. Scrotum began to spontaneously drain overnight. His scrotal discomfort is improved after it drained. Denies nausea, vomiting, fever or chills. He is NPO. Review of Systems Review of Systems: All systems reviewed & are unremarkable except as noted in HPI & below Physical Exam Constitutional: WD/WN, vitals as above Eyes: PERRL, conjunctivae normal, anicteric sclerae ENMT: external ear and nose normal, oropharynx normal Neck: trachea midline, no thyromegaly Respiratory: normal respiratory effort, lungs clear to auscultation Cardiovascular: RRR, no murmur, no edema Gastrointestinal (Abdomen): normal bowel sounds, soft, nontender, no h epatosplenomegaly Musculoskeletal: no cyanosis or clubbing, extremities motor strength 5/5 Skin: no rashes, warm and dry Scrotal abscess present with some redness around the scrotum. Draining, packing in place, tenderness on exam Neurologic: PERRL, EOMI, accommodation nl, no face palsy, no dysarthria Psychiatric: A+Ox3, euthymic affect Genitourinary: no testicular masses, no penis abnormality Results & Data Results & Data Vital Signs (Past 12 Hours) Vital Signs Temp Pulse Pulse Resp BP Pulse Ox O2 Del Method 01/15/24 11:04 36.4 C L 85 18 148/94 H 97 Room Air 01/15/24 09:29 72 01/15/24 07:58 37.2 C 81 16 134/80 94 Room Air 01/15/24 07:25 Room Air 01/15/24 04:02 36.5 C 86 16 122/79 94 Room Air Laboratory Results Laboratory Results WBC 13.53 K/ul (4.8-10.8) H 01/15/24 06:29 RBC 4.74 M/uL (4.70-6.10) 01/15/24 06:29 Hgb 13.9 g/dl (14.0-18.0) L 01/15/24 06:29 Hct 41.3 % (42.0-52.0) L 01/15/24 06:29 MCV 87.1 fL (80.0-100.0) 01/15/24 06:29 MCH 29.3 pg (25.0-34.0) 01/15/24 06:29 MCHC 33.7 g/dL (32.0-36.0) 01/15/24 06:29 RDW Std Deviation 41.4 fL (36.4-46.3) 01/15/24 06:29 RDW Coeff of Everardo 13.0 % (11.5-14.5) 01/15/24 06:29 Plt Count 251 K/uL (130-400) 01/15/24 06:29 MPV 10.0 fL (9.4-12.4) 01/15/24 06:29 Immature Gran % (Auto) 0.5 % 01/15/24 06: Neut % (Auto) 72.9 % 01/15/24 06: Lymph % (Auto) 15.2 % 01/15/24 06: [place] % (Auto) 10.4 % 01/15/24 06: Eos % (Auto) 0.6 % 01/15/24 06:29 Baso % (Auto) 0.4 % 01/15/24 06:29 Neut # (Auto) 9.87 K/uL (1.40-6.50) H 01/15/24 06:29 Lymph # (Auto) 2.05 K/uL (1.20-3.40) 01/15/24 06:29 [place] # (Auto) 1.41 K/uL (0.11-0.59) H 01/15/24 06:29 Eos # (Auto) 0.08 K/uL (0.00-0.50) 01/15/24 06:29 Baso # (Auto) 0.05 K/uL (0.00-0.20) 01/15/24 06:29 Immature Gran # (Auto) 0.07 K/uL (0.01-0.20) 01/15/24 06:29 Sodium 138 mmol/L (136-145) 01/15/24 06: Potassium 4.2 mmol/L (3.5-5.1) 01/15/24 06: Chloride 105 mmol/L (98-107) 01/15/24 06: Carbon Dioxide 26 mmol/L (21-32) 01/15/24 06:29 Anion Gap 7 (3-11) 01/15/24 06:29 BUN 11 mg/dl (6-23) 01/15/24 06: Creatinine 1.13 mg/dl (0.6-1.4) 01/15/24 06:29 Est Cr Clr Drug Dosing 94.5 ml/min 01/15/24 06:29 eGFR 75.81 01/15/24 06:29 BUN/Creatinine Ratio 9.7 (10-20) L 01/15/24 06:29 Glucose 101 mg/dl (70-99(Fasting)) H 01/15/24 06:29 Estimat Average Glucose 134 mg/dl 01/15/24 06:29 Hemoglobin A1c 6.3 % (4.5-5.6) H 01/15/24 06:29 Lactate 1.3 mmol/L (0.4-2.0) 01/14/24 13:53 Calcium 9.0 mg/dl (8.6-10.3) 01/15/24 06:29 Total Bilirubin 0.7 mg/dl (0.2-1.0) 01/15/24 06:29 AST 13 U/L (13-39) 01/15/24 06:29 ALT 16 U/L (7-52) 01/15/24 06:29 Alkaline Phosphatase 69 U/L (34-104) 01/15/24 06:29 Total Protein 7.1 gm/dl (6.0-8.3) 01/15/24 06: Albumin 3.9 gm/dl (3.4-5.0) 01/15/24 06:29 Globulin 3.2 gm/dl (2.5-4.0) 01/15/24 06:29 Albumin/Globulin Ratio 1.2 (0.9-2) 01/15/24 06:29 Urine Color Yellow 01/14/24 10:27 Urine Appearance Clear (Clear) 01/14/24 10:27 Urine pH 6.5 (4.5-7.5) 01/14/24 10:27 Ur Specific [place] 1.022 (1.000-1.030) 01/14/24 10:27 Urine Protein Trace (Negative) H 01/14/24 10:27 Urine Glucose (UA) Negative (Negative) 01/14/24 10:27 Urine Ketones Trace (Negative) H 01/14/24 10:27 Urine Blood Negative (Negative) 01/14/24 10:27 Urine Nitrite Negative (Negative) 01/14/24 10:27 Urine Bilirubin Negative (Negative) 01/14/24 10:27 Urine Urobilinogen Negative (Negative) 01/14/24 10:27 Ur Leukocyte Esterase Negative (Negative) 01/14/24 10:27 Urine WBC (Auto) 0-5 /hpf (0-5) 01/14/24 10:27 Urine RBC (Auto) 0-2 /hpf (0-2) 01/14/24 10:27 U Hyaline Cast (Auto) 0-2 /lpf (0-2) 01/14/24 10:27 U Epithel Cells (Auto) 0-2 /hpf (0-2) 01/14/24 10:27 Urine Bacteria (Auto) None Seen (None Seen) 01/14/24 10:[address] 01/14/24 10:14 CT pelvis w/IV con only HISTORY: 58 years-old Male scotal abscess acute pelvic pain with scrotal abscess COMPARISON: Ultrasound 03/20/2019, CT abdomen and pelvis 03/15/2019 TECHNIQUE: Multiple axial CT images of the pelvis were obtained with IV contrast. A dose lowering technique was used consistent with the principals of TUNG. FINDINGS: The imaged intrapelvic structures demonstrate no acute abnormality. Mild prostatomegaly. Decompressed bladder with wall thickening. Colonic diverti culosis without acute diverticulitis. No ascites or mesenteric inflammation. Tiny fat filled umbilical hernia. Borderline enlarged inguinal chain lymph nodes measure up to 11 mm on the left. Peripheral enhancing left scrotal collection measures 4.6 x 6.9 x 2.4 cm with peripheral subcutaneous edema and skin thickening with inflammation extending towards the left base of the penis on image 395 series 3 and 1-2:00 perianal tissues on image 3B2 series 3. Possible associated perianal fistula. No deep tissue air to suggest necrotizing fasciitis. No supralevator extension. No acute osseous abnormality. IMPRESSION: 1. 6.9 cm left-sided scrotal abscess with inflammation extending towards the left base of the penis and 1-2:00 perianal tissues with possible associated perianal fistula. 2. No deep tissue air identified to suggest fasciitis. 3. No supralevator or intrapelvic extension. 4. Colonic diverticulosis. 5. Mild inguinal lymphadenopathy is likely reactive. ACT 112: Negative or not required by law. The above report was generated using voice recognition software. It may contain grammatical, syntax or spelling errors. Electronically signed by: Sergio Nicholas M.D. 01/14/2024 12:40 PM Chest X-Ray 01/14/24 13:48 XR chest 1V portable HISTORY: 58 years-old Male pre op preoperative exam COMPARISON: 05/03/2019 TECHNIQUE: AP view the chest FINDINGS: Cardiac silhouette is normal in size. No pneumothorax, pleural effusion, airspace consolidation or pulmonary edema. Bones appear grossly intact. Small calcified granuloma the right upper lung. IMPRESSION: No acute process. ACT 112: Negative or not required by law. The above report was generated using voice recognition software. It may contain grammatical, syntax or spelling errors. Electronically signed by: Sergio Nicholas M.D. 01/14/2024 2:03 PM
[2024-01-15] MEDS ORDERED: PHENYLEPHRINE 100MCG/ML 5ML SYR ONE (12:43)
[2024-01-15] MEDS ORDERED: ePHEDrine sulfate 50 MG/5 ML SYR ONE (12:48)
[2024-01-15] MEDS: LIDOCAINE 1% LOCAL 20 ML VIAL ONE (12:54)
[2024-01-15] MEDS: VANCOMYCIN HCL 1000MG/20ML VIAL ONE (12:54)
--- NOTE | 2024-01-15 12:57 | Operative Report ---
PG Post Operative Report Pre & Post Diagnosis Operation Date: 01/15/24 07:05 Pre-Op Diagnosis: Scrotal abscess Post-Op Diagnosis: Scrotal abscess I identified the patient and participated in the time-out.: Yes Procedure Operation Date: 01/15/24 07:05 Actual Procedures Scrotal Excisional debridement and Incision and Drainage with Washout with Vancomycin solution and partial closure of scrotum. Left Cord block - Doc Beaulieu DO Surgeon Doc Beaulieu, II, DO Turntable Man None Estimated Blood Loss 10 Findings Consistent with Post-Op Diagnosis Large abscess cavity with significant scarring and irregular thickened/fibrotic tissue along the scrotum and perineum. Elliptical excision of scarred skin and tissue above the abscess cavity as well as incision into the abscess cavity. Moderate tracking superiorly. Significant purulent drainage from abscess Specimens Culture deep abscess Tissue culture abscess Drains 1 inch Iodoform Packing Anesthesia Type General Complications none Disposition Disposition: Recovery Room Indications Bothersome scrotal fluid collection likely abscess with purulent drainage and severe scarring from previous abscess. Risks and benefits discussed at length. Description of Procedure Patient was consented and brought back to the operating room. Patient was placed under anesthesia in the supine position. Patient was prepped and draped in the regular sterile fashion. A time out was completed. With the time out completed and the patient prepped, the area over the abscess was marked and local injected into the subcutaneous tissues. A cord block was completed at the scrotal junction on the left. There was significant scarring of the tissue from his previous abscesses. There were areas of indentation there was also an open draining area with a mild amount of bloody discharge. Significant fluctuance was still noted superiorly and inferiorly. There was also significant fixation of the tissue. An incision was made with a scalpel and the deep tissues were dissected with bovie electrocautery. The elliptical incision was marked in such a way to excise a major portion of the significantly scarred tissue as well as the open skin wound area where the spontaneous drainage was occurring. Once opened a moderate amount of purulent fluid was noted to be draining. A wound culture was taken from the deep portion of the abscess cavity. The entire cavity was then probed. Significant severe loculations and scar tissue were noted throughout the cavity. There was significant tracking superiorly and inferiorly as well as posteriorly. Multiple loculations were able to be broken up with blunt dissection however sharp dissection and Bovie cautery was utilized for the more significant scar tissue bridges and loculations that were encountered. Scar tissue/possibly early necrotic tissue was able to be excised. The elliptical incision and the scar tissue overlying the abscess cavity were excised and sent for pathologic/micro analysis. Tissue culture was sent from this excised tissue. Extensive dissection was necessary in order to open the cavity. Due to the significant scarring with releasing of the areas of indentation and puckering of the tissue, the wound lost its elliptical configuration. However the scrotal tissues however had drastically improved With the release of the adhesions and scar tissue within the abscess cavity. Superiorly there was a connection to the cavity to the left hemiscrotum. The testicle was not exposed or delivered at any point however the left hemiscrotum was appreciated. This area was washed out extensively. Care was taken to monitor the testicles location. The tunica and surrounding structures did not appear to be breached. A 2-0 Vicryl suture was used to close the opening in the hemiscrotum. The abscess cavity was then further flushed clear. No major bleeding was noted. No significant necrotic tissue was noted. The wound was found to be deep into the tissues especially tracking superiorly and posteriorly. A vancomycin saline solution was used to irrigate the wound. Due to the somewhat irregular configuration of the new skin wound closure was assessed. With closure of the edges it did appear that the cavity could be significantly reduced and allow for easy packing/wound care as well as management and healing. The skin edges were found to be bleeding freely without any signs of necrosis or nonviable tissue. The wound was irrigated a additional times in order to continue to flush the wound. Due to the active infection a partial closure was decided upon as complete closure was likely an appropriate and at high risk for further issues with infection. A 1-0 Vicryl suture was used to close skin edges superiorly, laterally, and inferiorly. The suture was used in a simple and horizontal mattress interrupted fashion. A 3.5 cm incision superiorly was closed. A 1.1 cm incision laterally was closed. And a 2.7 cm incision inferiorly was closed. The central portion of the wound was kept open to heal by secondary intent. The final open wound dimensions were 3.4 x 2.6 cm with a depth of 4.8 cm posteriorly. Superiorly the wound tracked 7.4 cm and inferiorly the wound tracked 3.8 cm. The area was cleaned. The wound was washed a final time with the vancomycin solution. Iodoform packing was then placed into the wound. A single place of iodoform packing was placed with the 2 ends located outside of the wound. The deeper sections were able to be packed completely without major issue. A scrotal support was placed with dressings. The patient was cleaned, aroused from anesthesia, and transferred to the pacu in stable condition having tolerated the procedure well with no complications. I was present and participated in all aspects of the procedure. Will plan to monitor patient postoperatively. Will order wound care for assessment. Will likely follow-up in 2 to 3 weeks for reassessment in office and wound check. Will likely need to continue with wound care for management, as well as packing and monitoring. I attest to the content of the Intraoperative Record and any orders documented therein. Any exceptions are noted below.
[2024-01-15] MEDS: fentaNYL citrate PF 100 MCG/2 ML VIAL IV PRN (13:15)
--- NOTE | 2024-01-15 13:21 | Anesthesiology Progress Note ---
Date of Service January 15, 2024 Anesthesia Post Procedure Vital Signs Vital Signs: Temp Pulse Pulse Pulse Resp BP Pulse Ox 01/15/24 13:10 95 H 14 140/90 94 01/15/24 13:03 36 C L 107 H 12 147/89 H 95 01/15/24 11:04 36.4 C L 85 18 148/94 H 97 01/15/24 09:29 72 01/15/24 07:58 37.2 C 81 16 134/80 94 01/15/24 07:25 01/15/24 04:02 36.5 C 86 16 122/79 94 01/14/24 23:26 36.9 C 96 H 16 133/91 94 01/14/24 21:58 100 H 01/14/24 19:40 37.3 C 101 H 16 138/89 96 01/14/24 15:48 36.7 C 95 H 16 152/87 H 96 O2 Del Method O2 Flow Rate 01/15/24 13:10 Oxymask 5 01/15/24 13:03 Oxymask 5 01/15/24 11:04 Room Air 01/15/24 09:29 01/15/24 07:58 Room Air 01/15/24 07:25 Room Air 01/15/24 04:02 Room Air 01/14/24 23:26 Room Air 01/14/24 21:58 01/14/24 19:40 Room Air 01/14/24 15:48 Room Air Pain Intensity Bilateral Perineal: Pain Intensity: 6 Transfer of Care Handoff Completed per policy Notes Mental Status: alert / awake / arousable and participated in evaluation Patient Amnestic to Procedure: Yes Nausea / Vomiting: adequately controlled Pain: adequately controlled Airway Patency, RR, SpO2: stable & adequate BP & HR: stable & adequate Hydration State: stable & adequate Anesthetic Complications: no major complications apparent and Pt Satisfied with anesthetic care
[2024-01-16 06:41] LABS: Hemoglobin 13.9 g/dl (14.0-18.0); Mean Corpuscular Hemoglobin 29.1 pg (25.0-34.0); Mean Corpuscular Hgb Conc 33.1 g/dL (32.0-36.0); Mean Corpuscular Volume 88.1 fL (80.0-100.0); Mean Platelet Volume 9.6 fL (9.4-12.4); Platelet Count 299 K/uL (130-400); RDW Coefficient of Variation 12.7 % (11.5-14.5); RDW Standard Deviation 41.3 fL (36.4-46.3); Red Blood Count 4.77 M/uL (4.70-6.10); White Blood Count 14.55 K/ul (4.8-10.8)
[2024-01-16 07:13] LABS: Albumin Globulin Ratio 1.1 (0.9-2); Albumin Level 3.9 gm/dl (3.4-5.0); BUN Creatinine Ratio 14.3 (10-20); Bilirubin,Total 0.4 mg/dl (0.2-1.0); Calcium 9.2 mg/dl (8.6-10.3); Creatinine Clr Calc Pharmacy 95.2 ml/min; Globulin 3.4 gm/dl (2.5-4.0); Potassium 4.5 mmol/L (3.5-5.1); Total Protein 7.3 gm/dl (6.0-8.3)
--- NOTE | 2024-01-16 10:51 | Hospitalist Progress Note ---
Date of Service January 16, 2024 Assessment & Plan (1) Sepsis: (2) Scrotal abscess: (3) Cellulitis of scrotum: Plan This is a 58 yr old M who has a significant PMH of HLD, pre diabetes and prior hx of perineal abscess in 2019 who presents to ED 2/2 swelling and pain to L scrotum x 1 week. Sepsis Scrotal Abscess s/p I&D 01/14 Met sepsis criteria with tachycardia/leukocytosis now improving Continue IV cefepime/Dapto/Flagyl Blood cultures negative x 24 hours, OR cultures pending Consult ID for further recommendations, uro following Elevated blood pressures without diagnosis of HTN SBP's anywhere from [id number], consider starting amlodipine on DC if blood pressures continue to be elevated Hx HLD: Hold statin for now Hx prediabetes: A1c 6.3, monitor daily sugars A total of 45 minutes was spent on chart review/facilitation of plan of care/reviewing diagnostic data/discussion with consultants Full code DVT prophylaxis: SCDs for now, can start Lovenox post-op if okay with urology Admission and Anticipated Discharge Date Admission Date: January 14, 2024 Supervising Physician Co-Signing Physician Notes pt no seen personally. pt awaiting operative cx and then ID eval, will need wound care set up on dc. Subjective Patient seen and examined. Reports feeling much better today. Anxious to be discharged and waiting on cultures. Denies any shortness of breath/chest pain/fevers overnight. Review of Systems Review of Systems: All systems reviewed & are unremarkable except as noted in HPI & below Physical Exam Constitutional: WD/WN, vitals as above Eyes: PERRL, conjunctivae normal, anicteric sclerae ENMT: external ear and nose normal, oropharynx normal Neck: trachea midline, no thyromegaly Respiratory: normal respiratory effort, lungs clear to auscultation Cardiovascular: RRR, no murmur, no edema Gastrointestinal (Abdomen): normal bowel sounds, soft, nontender, no hepatosplenomegaly Musculoskeletal: no cyanosis or clubbing, extremities motor strength 5/5 Skin: no rashes, warm and dry Neurologic: PERRL, EOMI, accommodation nl, no face palsy, no dysarthria Psychiatric: A+Ox3, euthymic affect Genitourinary: no testicular masses, no penis abnormality Results & Data Results & Data Vital Signs (Past 12 Hours) Vital Signs Temp Pulse Pulse Pulse Resp BP Pulse Ox 01/16/24 10:22 36.2 C L 92 H 18 160/98 H 95 01/16/24 07:20 36.3 C L 86 18 135/81 96 01/16/24 07:16 101 H 01/16/24 03:53 36.3 C L 93 H 18 129/85 93 01/15/24 23:30 36.5 C 94 H 16 134/87 92 O2 Del Method 01/16/24 10:22 Room Air 01/16/24 07:20 Room Air 01/16/24 07:16 01/16/24 03:53 Room Air 01/15/24 23:30 Room Air Diagnostic Findings Laboratory Results WBC 14.55 K/ul (4.8-10.8) H 01/16/24 06:05 RBC 4.77 M/uL (4.70-6.10) 01/16/24 06:05 Hgb 13.9 g/dl (14.0-18.0) L 01/16/24 06:05 Hct 42.0 % (42.0-52.0) 01/16/24 06:05 MCV 88.1 fL (80.0-100.0) 01/16/24 06:05 MCH 29.1 pg (25.0-34.0) 01/16/24 06:05 MCHC 33.1 g/dL (32.0-36.0) 01/16/24 06:05 RDW Std Deviation 41.3 fL (36.4-46.3) 01/16/24 06:05 RDW Coeff of Everardo 12.7 % (11.5-14.5) 01/16/24 06:05 Plt Count 299 K/uL (130-400) 01/16/24 06:05 MPV 9.6 fL (9.4-12.4) 01/16/24 06:05 Immature Gran % (Auto) 0.5 % 01/15/24 06:29 Neut % (Auto) 72.9 % 01/15/24 06:29 Lymph % (Auto) 15.2 % 01/15/24 06:29 [place] % (Auto) 10.4 % 01/15/24 06:29 Eos % (Auto) 0.6 % 01/15/24 06:29 Baso % (Auto) 0.4 % 01/15/24 06:29 Neut # (Auto) 9.87 K/uL (1.40-6.50) H 01/15/24 06:29 Lymph # (Auto) 2.05 K/uL (1.20-3.40) 01/15/24 06:29 [place] # (Auto) 1.41 K/uL (0.11-0.59) H 01/15/24 06:29 Eos # (Auto) 0.08 K/uL (0.00-0.50) 01/15/24 06:29 Baso # (Auto) 0.05 K/uL (0.00-0.20) 01/15/24 06: Immature Gran # (Auto) 0.07 K/uL (0.01-0.20) 01/15/24 06:29 Sodium 137 mmol/L (136-145) 01/16/24 06:05 Potassium 4.5 mmol/L (3.5-5.1) 01/16/24 06:05 Chloride 104 mmol/L (98-107) 01/16/24 06:05 Carbon Dioxide 23 mmol/L (21-32) 01/16/24 06:05 Anion Gap 10 (3-11) 01/16/24 06:05 BUN 16 mg/dl (6-23) 01/16/24 06:05 Creatinine 1.12 mg/dl (0.6-1.4) 01/16/24 06:05 Est Cr Clr Drug Dosing 95.2 ml/min 01/16/24 06:05 eGFR 76.62 01/16/24 06:05 BUN/Creatinine Ratio 14.3 (10-20) 01/16/24 06:05 Glucose 125 mg/dl (70-99(Fasting)) H 01/16/24 06:05 Estimat Average Glucose 134 mg/dl 01/15/24 06:29 Hemoglobin A1c 6.3 % (4.5-5.6) H 01/15/24 06:29 Lactate 1.3 mmol/L (0.4-2.0) 01/14/24 13:53 Calcium 9.2 mg/dl (8.6-10.3) 01/16/24 06:05 Total Bilirubin 0.4 mg/dl (0.2-1.0) 01/16/24 06:05 AST 14 U/L (13-39) 01/16/24 06:05 ALT 17 U/L (7-52) 01/16/24 06:05 Alkaline Phosphatase 73 U/L (34-104) 01/16/24 06:05 Total Creatine Kinase 97 U/L (30-223) 01/15/24 06:29 Total Protein 7.3 gm/dl (6.0-8.3) 01/16/24 06:05 Albumin 3.9 gm/dl (3.4-5.0) 01/16/24 06:05 Globulin 3.4 gm/dl (2.5-4.0) 01/16/24 06:05 Albumin/Globulin Ratio 1.1 (0.9-2) 01/16/24 06:05 Urine Color Yellow 01/14/24 10:27 Urine Appearance Clear (Clear) 01/14/24 10:27 Urine pH 6.5 (4.5-7.5) 01/14/24 10:27 Ur Specific [place] 1.022 (1.000-1.030) 01/14/24 10:27 Urine Protein Trace (Negative) H 01/14/24 10:27 Urine Glucose (UA) Negative (Negative) 01/14/24 10:27 Urine Ketones Trace (Negative) H 01/14/24 10:27 Urine Blood Negative (Negative) 01/14/24 10:27 Urine Nitrite Negative (Negative) 01/14/24 10:27 Urine Bilirubin Negative (Negative) 01/14/24 10:27 Urine Urobilinogen Negative (Negative) 01/14/24 10:27 Ur Leukocyte Esterase Negative (Negative) 01/14/24 10:27 Urine WBC (Auto) 0-5 /hpf (0-5) 01/14/24 10:27 Urine RBC (Auto) 0-2 /hpf (0-2) 01/14/24 10:27 U Hyaline Cast (Auto) 0-2 /lpf (0-2) 01/14/24 10:27 U Epithel Cells (Auto) 0-2 /hpf (0-2) 01/14/24 10:27 Urine Bacteria (Auto) None Seen (None Seen) 01/14/24 10:[address] 01/14/24 10:14 CT pelvis w/IV con only HISTORY: 58 years-old Male scotal abscess acute pelvic pain with scrotal abscess COMPARISON: Ultrasound 03/20/2019, CT abdomen and pelvis 03/15/2019 TECHNIQUE: Multiple axial CT images of the pelvis were obtained with IV contrast. A dose lowering technique was used consistent with the principals of TUNG. FINDINGS: The imaged intrapelvic structures demonstrate no acute abnormality. Mild prostatomegaly. Decompressed bladder with wall thickening. Colonic diverticulosis without acute diverticulitis. No ascites or mesenteric inflammation. Tiny fat filled umbilical hernia. Borderline enlarged inguinal chain lymph nodes measure up to 11 mm on the left. Peripheral enhancing left scrotal collection measures 4.6 x 6.9 x 2.4 cm with peripheral subcutaneous edema and skin thickening with inflammation extending towards the left base of the penis on image 395 series 3 and 1-2:00 perianal tissues on image 3B2 series 3. Possible associated perianal fistula. No deep tissue air to suggest necrotizing fasciitis. No supralevator extension. No acute osseous abnormality. IMPRESSION: 1. 6.9 cm left-sided scrotal abscess with inflammation extending towards the left base of the penis and 1-2:00 perianal tissues with possible associated perianal fistula. 2. No deep tissue air identified to suggest fasciitis. 3. No supralevator or intrapelvic extension. 4. Colonic diverticulosis. 5. Mild inguinal lymphadenopathy is likely reactive. ACT 112: Negative or not required by law. The above report was generated using voice recognition software. It may contain grammatical, syntax or spelling errors. Electronically signed by: Sergio Nicholas M.D. 01/14/2024 12:40 PM Chest X-Ray 01/14/24 13:48 XR chest 1V portable HISTORY: 58 years-old Male pre op preoperative exam COMPARISON: 05/03/2019 TECHNIQUE: AP view the chest FINDINGS: Cardiac silhouette is normal in size. No pneumothorax, pleural effusion, airspace consolidation or pulmonary edema. Bones appear grossly intact. Small calcified granuloma the right upper lung. IMPRESSION: No acute process. ACT 112: Negative or not required by law. The above report was generated using voice recognition software. It may contain grammatical, syntax or spelling errors. Electronically signed by: Sergio Nicholas M.D. 01/14/2024 2:03 PM
--- NOTE | 2024-01-16 11:53 | Urology Progress Note ---
Date of Service January 16, 2024 Assessment & Plan (1) Scrotal abscess: Plan: Pt is POD #1 s/p scrotal excisional debridement and I&D with washout with Vancomycin solution and partial closure of scrotum, left cord block with Dr. Beaulieu Patient afebrile, hemodynamic stable Labs reviewedcreatinine 1.12, WBC 14.55, hemoglobin 13.9 Blood cultures 11/3 preliminary with no growth after 24 hours Scrotum cultures prelim with no growth to date and pinpoint growth present reincubating Continue with antibiotics and follow cultures Wound care nurse consulted for evaluation and management Nursing can continue daily packing exchanges per WCN Patient will need plan at discharge for wound care Continue supportive care and medical management per hospital medicine service We will arrange outpatient follow-up with our service Admission and Anticipated Discharge Date Admission Date: January 14, 2024 Subjective Patient seen and examined at bedside this morning. Reports he is feeling better today. Reports some drainage from scrotal wound overnight. No significant scrotal discomfort. No fever or chills. Review of Systems Constitutional: as per Subjective / HPI Genitourinary: + as per Subjective / HPI Physical Exam Constitutional: well developed and well nourished; no acute distress Respiratory: normal respiratory effort; no respiratory distress and no labored breathing Gastrointestinal (Abdomen): Inspection/Auscultation: abdomen normal to inspection Musculoskeletal: Head/Neck/Chest: normocephalic Neurologic: moves all extremities and awake Psychiatric: Orientation: alert and oriented x 3 Genitourinary: Scrotum with some edema, mild erythema and induration. No significant tenderness to palpation. Sutures intact on partial closure. Some sanguinous drainage noted on ABDs, wound packing currently in place. No surrounding crepitus or necrosis. Results & Data Vital Signs (Past 12 Hours) Vital Signs Temp Pulse Pulse Pulse Resp BP Pulse Ox 01/16/24 10:22 36.2 C L 92 H 18 160/98 H 95 01/16/24 07:20 36.3 C L 86 18 135/81 96 01/16/24 07:16 101 H 01/16/24 03:53 36.3 C L 93 H 18 129/85 93 O2 Del Method 01/16/24 10:22 Room Air 01/16/24 07:20 Room Air 01/16/24 07:16 01/16/24 03:53 Room Air PG Care Time/CCT Total # of Minutes Spent Total Time Spent with Patient: Total time spent is greater than 50% in coordination of care (as documented) at patient's floor/unit and/or counseling patient: Coding Level of Care Code 20276 SUB INP/OBS CARE 1/25MIN Diagnoses Scrotal abscess N49.2
[2024-01-16] MEDS: metroNIDAZOLE 500 MG TAB PO SCH (15:42)
[2024-01-17 03:22] VITALS: RESP 18; TEMP 97.5
[2024-01-17 06:55] LABS: Hematocrit (blood only) 42.3 % (42.0-52.0); Mean Corpuscular Hemoglobin 29.2 pg (25.0-34.0); Mean Corpuscular Hgb Conc 33.1 g/dL (32.0-36.0); Mean Corpuscular Volume 88.1 fL (80.0-100.0); Mean Platelet Volume 9.6 fL (9.4-12.4); Platelet Count 288 K/uL (130-400); RDW Coefficient of Variation 13.1 % (11.5-14.5); RDW Standard Deviation 42.8 fL (36.4-46.3); White Blood Count 11.33 K/ul (4.8-10.8)
[2024-01-17 07:10] LABS: Albumin Globulin Ratio 1.2 (0.9-2); Albumin Level 3.8 gm/dl (3.4-5.0); BUN Creatinine Ratio 14.8 (10-20); Bilirubin,Total 0.4 mg/dl (0.2-1.0); Creatinine Clr Calc Pharmacy 83.2 ml/min; Globulin 3.3 gm/dl (2.5-4.0); Potassium 4.2 mmol/L (3.5-5.1); Total Protein 7.1 gm/dl (6.0-8.3)
[2024-01-17 07:58] VITALS: O2SAT 93
--- NOTE | 2024-01-17 10:23 | Urology Progress Note ---
Date of Service January 17, 2024 Assessment & Plan (1) Scrotal abscess: Plan: Pt is POD #2 s/p scrotal excisional debridement and I&D with washout with Vancomycin solution and partial closure of scrotum, left cord block with Dr. Beaulieu Patient afebrile, hemodynamic stable Labs reviewedcreatinine 1.28, WBC 11.33, hemoglobin 14.0 Blood cultures 11/3 preliminary with no growth x 48 hours 1 of 2 Scrotum cultures prelim with Klebsiella, other culture with no growth Continue with antibiotics and follow cultures Plan to transition to PO antibiotics upon discharge Wound care nurse consulted for evaluation and management Nursing can continue daily packing exchanges per WCN Patient will need plan at discharge for ongoing wound care Continue supportive care, antibiotics and medical management per hospital medicine service We will arrange outpatient follow-up with our service will sign off, recall as needed Admission and Anticipated Discharge Date Admission Date: January 14, 2024 Subjective Patient seen and examined at bedside this morning. Fiance at bedside. No issues overnight. No significant scrotal discomfort. Reports less drainage from area. No fever or chills. He would like to go home today. Review of Systems Constitutional: as per Subjective / HPI Genitourinary: + as per Subjective / HPI Physical Exam Constitutional: well developed and well nourished; no acute distress Respiratory: normal respiratory effort; no respiratory distress and no labored breathing Gastrointestinal (Abdomen): Inspection/Auscultation: abdomen normal to inspection Musculoskeletal: Head/Neck/Chest: normocephalic Neurologic: moves all extremities and awake Psychiatric: Orientation: alert and oriented x 3 Genitourinary: Scrotum with mild edema and erythema. No significant tenderness to palpation. Sutures intact on partial closure. Minimal sanguinous drainage noted on ABDs, wound packing currently in place. No surrounding crepitus or necrosis. Results & Data Vital Signs (Past 12 Hours) Vital Signs Temp Pulse Pulse Resp BP Pulse Ox O2 Del Method 01/17/24 07:57 36.4 C L 87 18 137/87 93 Room Air 01/17/24 07:17 77 01/17/24 03:22 36.4 C L 89 18 133/91 94 Room Air 01/16/24 23:22 36.9 C 85 16 136/87 93 Room Air PG Care Time/CCT Total # of Minutes Spent Total Time Spent with Patient: Total time spent is greater than 50% in coordination of care (as documented) at patient's floor/unit and/or counseling patient: Coding Level of Care Code 78889 SUB INP/OBS CARE 1/25MIN Diagnoses Scrotal abscess N49.2
[2024-01-17 11:41] VITALS: BP 147/96
--- NOTE | 2024-01-17 14:38 | Infectious Disease Consult ---
Date of Service January 17, 2024 Telehealth Information I performed this visit using a real-time telehealth connection between my location and the patients location ([facility]). After connecting through interactive tele-video, patient was identified by name and date of and/or wristband check.Patient (or authorized healthcare self pay representative) was informed that this was a telemedicine visit and it was being conducted confidentially over secure lines. My office door was closed and no one else was present in the room with me.Patient (or authorized healthcare self pay representative) provided consent to proceed with the visit, expressed an understanding of privacy and security of the telemedicine visit, and gave permission to have a hospital self pay representative in the room in order to assist with the visit and to conduct portions of the visit, as needed. I informed the patient (or authorized healthcare self pay representative) that I reviewed their record and presented the opportunity for them to ask any questions regarding the visit today. The patient agreed to participate. Assessment & Plan (1) Scrotal abscess: Plan: Assessment: L scrotal cellulitis w/ abscess Hx of prior recurrent perineal abscess (2019) Hx of allergy to PCN (rash) 01/15/24 - I&D w/ partial closure of the scrotum Recommendations: - Stop daptomycin - Stop metronidazole - Stop cefepime - Start Cipro 500 mg po bid to complete total 2 weeks w/ last dose on 01/28/24. - Please, provide probiotics while on abx therapy - F/u susceptibility of KPN: the susceptibility is not available, yet. Please, f/u the result in case the abx needs to be adjusted. I spent a total of 60 minutes coordinating, documenting, and providing care for this patient excluding time spent in the performance of separately billed services or time spent by another provider/QHP. History of Present Illness History of Present Illness This is a 58 y/o male (Alberto) w/ hx of HLD, preDM, and prior recurrent perineal abscess (2019), who presnted w/ swelling and pain on L scrotum x1 week. He was admitted to [facility] on 01/14/24 for scrotol abscess, requiring I&D w/ partial closure of the scrotum (01/15/24: scrotal abscess cx showing KPN). No fever but leukocytosis on 14.49K. CT showed 6.9 cm left-sided scrotal abscess w/ inflammation extending towards the left base of the penis and 1-2:00 perianal tissues w/ possible associated perianal fistula but issue leaking noted during BMs at hospital. Currently on daptomycin, cefepime and metronidazole. He denies any pain: it was 7-8 out of 10 on presentation. No f/c, n/v, abd pain, coughing, cp, sob, or dysuria. He did not take any abx recently. No hx of aneurysm. Allergies Allergy/AdvReac Type Severity Reaction Status Date / Time Penicillins Allergy Unknown Rash Verified 01/14/24 13:03 Home Medications Medication Instructions Recorded Confirmed Type ibuprofen 800 mg tablet 600 mg PO Q6H PRN pain 05/13/19 01/14/24 History atorvastatin 20 mg tablet 20 mg PO DAILY 12/16/20 01/14/24 History lactobacillus combination no.4 3 1 cell PO DAILY 01/14/24 01/14/24 History billion cell capsule (Probiotic) Patient History Medical History H/O drainage of abscess PERINEAL 05/14/2019 [facility] Compressed vertebrae HX OF L2-3 Fatty liver Epididymitis Dyslipidemia Surgical History Status post scrotal varicocelectomy Undescended testicle HX repair as a child Family History Mother Dyslipidemia Family history of breast cancer Father Prostate cancer Sister Family history of breast cancer Social History Smoking Status: Former smoker Second Hand Exposure: Yes ( A CHILD); Do You Dip or Chew Tobacco: No; Hx Alcohol Use: Yes Alcohol type: wine Alcohol Intake Frequency Comment: Weekends Hx Substance Use: No Preferred Language: Yoruba Communication Ability: Effective Manager Data Warehouse Required: No Beliefs That Will Affect Care: None Current Living Situation: Alone Feels Safe at Home: Yes Assistive Devices: None Review of Systems as HPI and all others negative Physical Exam Body weight: 111 kg BMI: 32.3 kg/m2 Gen: no acute distress Lung: breathing comfortably on RA : no obviou erythema noted on scrotum but open wound at the incision site w/ packing Neuro: A&Ox3 Results & Data Vital Signs (Past 12 Hours) Vital Signs Temp Pulse Pulse Resp BP Pulse Ox O2 Del Method 01/17/24 14:15 110 H 01/17/24 11:38 36.4 C L 89 18 147/96 H 93 Room Air 01/17/24 07:57 36.4 C L 87 18 137/87 93 Room Air 01/17/24 07:17 77 01/17/24 03:22 36.4 C L 89 18 133/91 94 Room Air Laboratory Results WBC 14.49K -> 14.55K -> 11.33K H 14 Plt 288K Cr 1.28 (CrCl 83.2) LFT unremarkable UA (01/14/24): LE neg Blood cx (01/13): NGTD Scrotal abscess cx (01/15): KPN QTcB Int : [address] pelvis (01/14/24): 1. 6.9 cm left-sided scrotal abscess with inflammation extending towards the left base of the penis and 1-2:00 perianal tissues with possible associated perianal fistula. 2. No deep tissue air identified to suggest fasciitis. 3. No supralevator or intrapelvic extension. 4. Colonic diverticulosis. 5. Mild inguinal lymphadenopathy is likely reactive.
--- NOTE | 2024-01-17 14:43 | Discharge Summary ---
Discharge Summary Date of Service January 17, 2024 Principal Dx & Hospital Course #1 = Principal Diagnosis (1) Sepsis: (2) Scrotal abscess: (3) Cellulitis of scrotum: Patricia Lucia is a 58 y/o M with PMHx significant for dyslipidemia, prediabetes, history of actinic keratosis, bilateral tinnitus aurium, melanoma of back s/p excision and history of perineal abscess s/p I&D + excision [2020] who presented to the ED on 01/14/2024 for evaluation of left scrotum pain. He was found to be septic with evidence of a left scrotal abscess at time of admission. Sepsis [Resolved], Left Scrotal Abscess: Met sepsis criteria on admission 2/2 tachycardia/leukocytosis/source of infection. Admitting CTAP --> 6.9cm left-sided scrotal abscess. He is now POD #2 s/p left scrotal excisional debridement and I&D performed by Dr. Beaulieu. Was treated w/ IVF and IV cefepime/daptomycin/metronidazole. Sepsis resolved. Blood cultures NGTD. 03/14 OR scrotal cultures grew Klebsiella pneumoniae. ID consulted --> Discharging patient on po ciprofloxacin 500mg BID to complete a full 2-week ABX course, last dose to be given on 01/28/2024. Probiotic daily. Will need to f/u on susceptibility of his OR scrotal culture as it is not available yet - can adjust his ABX if needed. [facility] will be providing home wound care education/teaching. Elevated Blood Pressures: SBPs anywhere from [id number] during his admission. No previous diagnosis of HTN. Will need close PCP f/u as he may need started on a low-dose antihypertensive. Other Chronic Medical Conditions: HLD --> Can resume Lipitor at time of discharge. Hgb A1c 6.3% this admission, BSGs were well-controlled. PCP: Eliceo Oneill, Disposition: Patient is being discharged home in stable condition with close PCP and [facility] Urology f/u. [facility] onboard to assist with in-home wound care services. Patient seen in collaboration with Dr. Foster. Please see addendum. I spent a total of 60 minutes coordinating, documenting, and providing care for this patient excluding time spent in the performance of separately billed services. This included personally reviewing all current laboratories and imaging studies, medical reconciliation, outpatient chart review and discussion with specialists. This chart was completed in part utilizing Speech Voice Recognition Software. Grammatical errors, random word insertions, pronoun errors, and incomplete sentences are an occasional consequence of this system due to software limitations, ambient noise, and hardware issues. Any formal questions or concerns about the content, text, or information contained within the body of this dictation should be directly addressed to the provider for clarification. Notes For Next Care Provider Patient with slightly elevated BPs during his admission. Will require close BP monitoring. No antihypertensive medications were started this admission. Medication Changes From Visit No changes were made to his previous home medications. Patient is being discharged home on a po course of ciprofloxacin to be taken through 01/28/2024. Admission HPI Per Admitting Provider This is a 58 yr old M who has a significant PMH of HLD, pre diabetes and prior hx of perineal abscess in 2019 who presents to ED 2/2 swelling and pain to L scrotum x 1 week. He reports back in 2019 having a similar episode that required 2 surgeries that left and open wound. The wound finally healed a year ago. He follows with [facility] urology. He reports ever since that surgery if he sits for prolonged period of time it becomes painful. He was flying last week and had a 5hr lay over in [place]. This is where he started noticing increased pain and discomfort. When he returned home the pain continued and he developed swelling to his scrotum. He tried OTC ibuprofen and ice, but when he woke up this morning his swelling was even worse so he came to ED. He denies any f/c/s, chest pain, sob, n/v/d, abd pain, dysuria, increased urg/freq with urination, change in stool or discharge. In ED pt met sepsis criteria with leukocytosis and tachycardia. CT a/p revealed . 6.9 cm left-sided scrotal abscess with inflammation extending towards the left base of the penis and 1-2:00 perianal tissues with possible associated perianal fistula. 2. No deep tissue air identified to suggest fasciitis. He received IV Rocephin while in ED. Urology was consulted. He reports being able to ambulate 1 flight of stairs w/o cardiovascular sx. He also denies any previous rxn to anesthesia. Admission Exam Per Admitting Provider Constitutional: WD/WN, vitals as above, NAD, sitting up in bed, pleasant, conversing easily Head: Normocephalic, Atraumatic Eyes: PERRL, conjunctivae normal, anicteric sclerae ENMT: external ear and nose normal, oropharynx normal Neck: trachea midline, no thyromegaly normal visual inspection Respiratory: normal respiratory effort, lungs clear to auscultation, no wheeze, rales, rhonchi. Normal insp/exp effort, no accessory muscle use Cardiovascular: RRR, no murmur, no edema Vessels: no JVD or carotid bruit Chest: normal inspection of chest Abdomen: normal bowel sounds, soft, nontender, no hepatosplenomegaly Musculoskeletal: no cyanosis or clubbing, extremities motor strength 5/5 Skin: no rashes, warm and dry normal turgor Neurologic: PERRL, EOMI, accommodation nl, no face palsy, no dysarthria CN's II-XI intact bilaterally and moves all extremities Psychiatric: A+Ox3, euthymic affect Lymphatic: no cervical or axillary lymphadenopathy : +scrotal erythema, and edema L > R with induration, no evidence of necrosis Discharge Exam General: WD/WN, NAD, sitting up in bed, very pleasant, conversing appropriately. Patient's fiance at bedside. A+Ox3, euthymic affect. HEENT: Normocephalic, atraumatic. Conjunctivae normal, anicteric sclerae. External ear and nose normal, oropharynx normal. Respiratory: Normal respiratory effort, lungs clear to auscultation, no wheeze, rales, rhonchi. No accessory muscle use. Cardiovascular: Regular rate, rhythm, no murmur, normal peripheral pulses, no BLE edema. Vessels: No JVD. Abdomen/GI: Normal bowel sounds, soft, nontender, no hepatosplenomegaly. : Scrotum with mild erythema and erythema, no significant tenderness to palpation. Sutures intact, wound packing in place. Extremities/Musculoskeletal: No cyanosis or clubbing, extremities motor strength intact, moves all extremities. Neurologic: No focal deficits, CN's II-XI not formally tested but appear grossly intact bilaterally. Skin: No rashes, normal color, warm/dry. Minimal serosanguineous drainage noted on ABDs. Updated Medication List Medication Instructions Recorded Confirmed Type ibuprofen 800 mg tablet 600 mg PO Q6H PRN pain 05/13/19 01/14/24 History atorvastatin 20 mg tablet 20 mg PO DAILY 12/16/20 01/14/24 History lactobacillus combination no.4 3 1 cell PO DAILY 01/14/24 01/14/24 History billion cell capsule (Probiotic) L.acidop,casei,lactis,rham-B.lact,fatou 1 cap PO DAILY #11 caps 01/17/24 Rx 625 mg (10 billion cell) capsule (Advanced Probiotic) ciprofloxacin HCl 500 mg tablet 500 mg PO BID 11 days #22 tabs 01/17/24 Rx Hospital Stay Data Consultations 01/14/24 13:14 Consult Urology Routine 01/14/24 13:22 ED Decision to Admit Stat 01/16/24 10:46 Consult Infectious Diseases Routine Procedures Performed Operation Date: 01/15/24 07:05 Actual Procedures p Scrotal Incision and Drainage with Washout(Not Applicable) - Doc Beaulieu, DO Diagnostic Imagining Performed 01/14/24 10:14 CT pelvis w/IV con only Stat Discharge Instructions Given to Patient (Per Discharging Provider) Bharath Santana were admitted to the hospital after being diagnosed with a left scrotal abscess. You were treated with IV antibiotics and underwent the following surgical procedure on 01/15/[address] Doc Beaulieu with [facility]: left scrotal excisional debridement and incision and drainage. You are being discharged home on a 11-day course of oral CIPROFLOXACIN. Please begin taking this antibiotic starting tomorrow morning. Your last day of taking this antibiotic will be 01/28/2024. Please take this antibiotic as prescribed and in its entirety! You are also being discharged with a prescription for a probiotic to take whilst on the ciprofloxacin. You will be contacted very soon by the [facility]rology office to schedule a follow-up appointment! You were also seen and evaluated by wound care while you were admitted. You will be contacted by [facility] very soon to schedule a home meeting with them within the next 48 hours! [facility] services will be providing you with in-home wound care services and education. Please follow up with [facility] if you have any questions or concerns regarding wound care. WOUND CARE INSTRUCTIONS: To scrotum - irrigate with saline. Gently fill scrotal wound daily with Iodoform. Apply Kaltostat to skin below opening. Cover with ABD's. Change outer ABD's as needed. UPCOMING FOLLOW-UP APPOINTMENT Date & Time: 01/25/2024 @ 2:20PM Provider: Eliceo Oneill DO Department: [facility] Seek medical attention if you have: * temperature above 101F * chest pain or trouble breathing * abdominal pain, nausea, vomiting * diarrhea, dark stools or bloody stools * any unanswered questions or concerns Call 911 if symptoms are severe. Please take good care of yourself. It has been a pleasure taking care of you. If you have any questions regarding your recent hospitalization please contact [facility] and request [facility] @ [phone]. Total Time Total Time Spent Total Time Spent (In Minutes): 60 Supervising Physician Co-Signing Physician Notes Patient seen and examined at bedside. He reports that he is feeling much better and wants to go home He was seen by urology and he was seen by urology and infectious disease; urology to follow him as outpatient. Infectious disease recommended antibiotics for 2 weeks. Patient to be seen by wound care at home. Instruction regarding close follow-up with wound care center recommended and patient verbalized understanding. I have reviewed the advanced practitioner's documentation, and I agree with, and take responsibility for the plan of care I spent a total of 20 minutes coordinating, documenting, and providing care for this patient excluding time spent in the performance of separately billed services. All of the aforementioned completed while collaborating with the assigned advanced practitioner for a full treatment plan
[2024-01-17 15:48] VITALS: PULSE 89
== END 2024-01-17 16:06 | disposition home health service (06) | DRG 855 ==
LOC: ED 09:47 → SUATTDRO 13:14 → 2N 13:14
DX: K76.0 Fatty (change of) liver, not elsewhere classified; A41.9 Sepsis, unspecified organism; N49.2 Inflammatory disorders of scrotum; E78.5 Hyperlipidemia, unspecified; R03.0 Elevated blood-pressure reading, without diagnosis of hypertension; R73.03 Prediabetes; I10 Essential (primary) hypertension; Z88.0 Allergy status to penicillin; Z80.42 Family history of malignant neoplasm of prostate; Z87.891 Personal history of nicotine dependence